=== PATIENT | female | born 1995 | race Caucasian/White ===

== ENCOUNTER → 2019-09-07 15:19 | Outpatient (CLI) | payer OTHER, SELFPAY ==
[2019-09-07 16:44] LABS: HCG,Quantitative 9808 mIU/mL
== END ==
PROVIDERS: Visit Provider Obstetrics & Gynecology
DX: Z34.90 Encounter for supervision of normal pregnancy, unspecified, unspecified trimester (principal)
CPT/HCPCS: 36415; 84702

== ENCOUNTER → 2019-09-29 13:04 | Outpatient (CLI) | payer OTHER, SELFPAY ==
[2019-09-29 14:13] LABS: Amphetamine/Metha Screen,Urine Positive ng/mL (<1000); Barbiturates Screen,Urine Negative ng/mL (<200); Benzodiazepines Screen,Urine Negative ng/mL (<200); Cannabinoid Screen,Urine Negative ng/mL (<50); Cocaine Screen,Urine Negative ng/mL (<300); Methadone Screen,Urine Negative ng/mL (<300); Opiate Screen,Urine Negative ng/mL (<300); Phencyclidine Screen,Urine Negative ng/mL (<25)
[2019-09-30 18:27] LABS: Buprenorphine, Urine Negative ng/mL (Cutoff=10)
== END ==
LOC: LAB 13:05 → LAB.DROPOF 13:12 → LAB 14:05
PROVIDERS: Visit Provider Nurse Practitioner Obstetrics & Gynecology
DX: Z34.90 Encounter for supervision of normal pregnancy, unspecified, unspecified trimester (principal); R82.5 Elevated urine levels of drugs, medicaments and biological substances
CPT/HCPCS: 80305; 80307

== ENCOUNTER → 2019-10-03 13:36 | Outpatient (CLI) | payer OTHER, SELFPAY ==
--- NOTE | 2019-10-03 13:37 | US_ITS ---
PROCEDURE: US OB TRANSVAGINAL CLINICAL INDICATION: US OB Dates Evaluate early Ob COMPARISON: No exams were available for comparison FINDINGS: An intrauterine gestational sac is present with a pole with a crown-rump length of 2.56 cm correlating to gestational age of 9 weeks 3 days. heart tones are present with an FHR of 167 bpm. Yolk sac is noted. Chorion and amnion fused. There is a 1.5 cm left corpus luteum cyst. Right ovary is unremarkable. No cul-de-sac fluid. IMPRESSION: Live IUP at 9 weeks 3 days Estimated due date by Ultrasound is 05/04/2020 Dictated by: Chad Esquivel MD 10/03/2019 18:01 Electronically signed by Chad Esquivel MD in [place] 10/03/2019 18:01
[2019-10-03 15:01] LABS: Basophils # 0.1 K/mm3 (0-0.2); Basophils % 0.6 % (0.1-2.0); Eosinophils # 0.1 K/mm3 (0.0-0.4); Eosinophils % 1.2 % (0.1-12.0); Hematocrit 37.2 % (37.0-47.0); Hemoglobin 12.2 g/dL (12.2-16.2); Lymphocytes # 1.9 K/mm3 (0.7-4.5); Lymphocytes % 22.8 % (10-50); Mean Corpuscular HGB Conc 32.8 g/dL (31.8-35.4); Mean Corpuscular Hemoglobin 30.5 pg (27.0-31.2); Monocytes # 0.3 K/mm3 (0.1-1.0); Neutrophils # 5.9 K/mm3 (1.8-7.8); Neutrophils % 71.4 % (37.0-80.0); Platelet Count 273 K/mm3 (142-424); Red Blood Count 3.99 M/mm3 (4.20-5.40); Red Cell Distribution Width 11.8 % (11.5-17.5); White Blood Count 8.3 K/mm3 (4.8-10.8)
[2019-10-05 13:17] LABS: HIV Screen 4th Generation wRfx Non Reactive (Non Reactive); Hepatitis B Surface Antigen Negative (Negative); Hepatitis C Antibody <0.1 s/co ratio (0.0-0.9); Rapid Plasma Reagin Ab Titer Non Reactive (NonRea<1:1); Rubella Antibodies, IgG 4.11 index (Immune >0.99)
== END ==
PROVIDERS: PCP Nurse Practitioner Family; Visit Provider Nurse Practitioner Obstetrics & Gynecology
DX: O26.841 Uterine size-date discrepancy, first trimester (principal)
CPT/HCPCS: 36415; 76817; 85025; 86592; 86703; 86762; 86850; 87340; 87380; G0432

== ENCOUNTER → 2019-10-03 14:05 | Outpatient (CLI) | payer OTHER, SELFPAY | PROVIDERS: Visit Provider Nurse Practitioner Obstetrics & Gynecology | DX: Z34.90 Encounter for supervision of normal pregnancy, unspecified, unspecified trimester (principal) | CPT/HCPCS: 36415; 85025; 86592; 86703; 86762; 86850; 87340; 87380; G0432 ==

== ENCOUNTER → 2019-12-11 14:31 | Outpatient (CLI) | payer OTHER, SELFPAY ==
--- NOTE | 2019-12-11 14:37 | US_ITS ---
PROCEDURE: US OB /MATERNAL DETAIL CLINICAL INDICATION: 20 wk. routine scan COMPARISON: US OB TRANSVAGINAL from 10/03/2019 FINDINGS: Single viable intrauterine gestation. Cephalic position. Placenta: Posteriorplacenta grade 1. There is average amount fluid. The cervix appears satisfactory. Closed and measuring 3.2 centimeters in length. Complete survey performed and was unremarkable on the submitted images as in PACS. No discrete anomalies identified on survey imaging by technologist. Active fetus. Three-vessel cord with satisfactory umbilical cord insertion. 4- chamber heart noted. Survey of brain & ventricles unremarkable Face and neck survey unremarkable. Diaphragm and chest views unremarkable. Abdomen: Both kidneys noted and unremarkable. Stomach noted and satisfactory. Spine: Survey of the spine satisfactory with no anomalies identified nor imaged. Both arms and legs noted. Amniotic Fluid: Adequate. Maternal adnexa: No significant findings. Measurements: Average ultrasound age 19weeks 3days. Gestational Age 19weeks 3days Estimated due date by ultrasound age 0705/03/2020. Estimated weight 293g BPD = 19weeks 3days OFD = 20 weeks 0 days HC = 19weeks AC = 19weeks 5days FL = 19weeks 3days Growth Percentile= 51Percent% Heart Rate = 143bpm Cerebellum = 19weeks 4days Humerus = 19weeks HC/AC is 1.13 CI is 0.76 FL/BPD is 0.68 FL/AC is 0.21 IMPRESSION: Living intrauterine gestation at 19 weeks 3 days with no anomalies evident. Dictated by: Saurav Dumont 12/11/2019 17:20 Electronically signed by Saurav Dumont in [place] 12/11/2019 17:20
== END ==
PROVIDERS: PCP Family Medicine; Visit Provider Nurse Practitioner Obstetrics & Gynecology
DX: Z34.90 Encounter for supervision of normal pregnancy, unspecified, unspecified trimester (principal)
CPT/HCPCS: 76811

== ENCOUNTER → 2020-02-02 08:40 | Outpatient (CLI) | payer OTHER, SELFPAY ==
[2020-02-02 09:17] LABS: Glucose,Fasting 86 mg/dl (74-100)
[2020-02-02 10:41] LABS: Glucose 1 Hour 106 mg/dL (74-100)
== END ==
PROVIDERS: Nurse Practitioner Obstetrics & Gynecology; Visit Provider Obstetrics & Gynecology
DX: Z34.90 Encounter for supervision of normal pregnancy, unspecified, unspecified trimester (principal)
CPT/HCPCS: 36415; 82951

== ENCOUNTER 2020-03-28 03:50 | Inpatient (IN) | payer OTHER, SELFPAY ==
--- NOTE | 2020-03-28 04:27 | HMH.DN ---
- Delivery Note Delivery Date:: 03/28/20 Delivery Time:: 04:14 Anesthesia Type: None Was labor medically induced?: No Induction method: none Gestational age (weeks): 34 delivered prior to 39 weeks?: Yes Justification for early elective delivery:: Active Labor Infant Gender: Male at 1 minute: 7 at 5 minutes: 8 AF:: Thin meconium Delivery Procedure:: She is a 24-year-old 2 para 1 who was 34 and 4 weeks gestational age. She came in active labor. She was found to be 8 cm dilated when she arrived. She then spontaneously ruptured her membranes and there was thin meconium. She had 1 long push and delivered a liveborn male child at 4:14 AM on the morning of March 28, 2020. On deliver the head it was noted that there was thin meconium. After the head delivered the rest the 's body delivered rapidly. The oropharynx and nasopharynx were bulb suction. The cord was doubly clamped and cut and the infant was handed off to Dr. Hendricks who assigned Apgars of 7 at 1 minute and 8 at 5 minutes. We then obtained cord blood as well as cord pH. She received IV oxytocin and using gentle traction on the cord and countertraction on the fundus I was able to easily deliver the placenta intact. He had a normal three-vessel cord. There were no perineal or vaginal lacerations. Her group B streptococcus status is unknown. Her caregivers non medical is Dr. Oliver. Estimated blood loss was approximately 300 cc. Placental Delivery Description: Spontaneous
[2020-03-28 04:31] LABS: Basophils # 0.1 K/mm3 (0-0.2); Basophils % 1.1 % (0.1-2.0); Eosinophils # 0.1 K/mm3 (0.0-0.4); Eosinophils % 1.2 % (0.1-12.0); Hematocrit 41.7 % (37.0-47.0); Hemoglobin 13.6 g/dL (12.2-16.2); Lymphocytes # 2.6 K/mm3 (0.7-4.5); Lymphocytes % 21.7 % (10-50); Mean Corpuscular HGB Conc 32.5 g/dL (31.8-35.4); Mean Corpuscular Hemoglobin 31.6 pg (27.0-31.2); Mean Corpuscular Volume 97.2 fl (81-99); Mean Platelet Volume 9.8 fl (7.4-10.4); Monocytes # 0.7 K/mm3 (0.1-1.0); Monocytes % 6.1 % (1.7-9.3); Neutrophils # 8.3 K/mm3 (1.8-7.8); Neutrophils % 69.9 % (37.0-80.0); Platelet Count 280 K/mm3 (142-424); Red Blood Count 4.29 M/mm3 (4.20-5.40); Red Cell Distribution Width 15.5 % (11.5-17.5); White Blood Count 11.9 K/mm3 (4.8-10.8)
[2020-03-28 04:34] LABS: Cord Blood PH 7.37 (7.35-7.45)
--- NOTE | 2020-03-28 04:36 | HMH.OBAPHP ---
OB - H&P: HPI Antepartum - History of Present Illness Chief complaint: Active labor contractions History of present illness: She is a 24-year-old 2 para 1 at 34 and 4 weeks gestational age. She began having contractions on the evening of March 27, 2020. She subsequently arrived in labor and delivery in the mobile service rv technician hours of March 28, 2020 and was found to be 8 cm dilated. She spontaneously ruptured her membranes and progressed rapidly to full diet ablation. She delivered a liveborn male child at 4:14 AM on the morning of March 28, 2020. The baby had Apgars of 7 at 1 minute and 8 at 5 minutes. She has a history of methamphetamine use. She has only had one episode of methamphetamine positive urine in the whole . She is otherwise been doing very well. - History of Present Criteria for establishing EDC:: LMP confirmed by 1st trimester US care: good care Ultrasounds: normal 1st trimester US, normal mid trimester US Obstetrical complications: none - Labs Blood type: O (+) positive Rubella: immune RPR/VDRL: nonreactive GBS status: unknown HBsAG: negative [facility] History I have reviewed the patient's past medical history: Yes *Have you ever received a pneumonia vaccine?: No Other Surgeries: Yes: No Previous Surgery Amputation: No Fractures: No - *Social History Smoking Status: Former smoker Alcohol Intake: never Substance Use Type: methamphetamine, amphetamines *Occupational Status:: other Family Hx:: No significant family history Review of Systems - Review of Systems Review of systems:: pertinent systems reviewed and negative unless documented below Meds Home Medications Medication Instructions Recorded Confirmed Type PNV 153-FA 400 mcg-om3 35 mg-dha 1 tab PO DAILY #30 tab 11/28/19 03/27/20 Rx 25 mg-epa 5 mg-fish oil chew tablet ondansetron 4 mg disintegrating 4 mg PO Q6H PRN #30 tab 11/28/19 03/27/20 Rx tablet ferrous sulfate 325 mg (65 mg 325 mg PO DAILY #30 tab 12/18/19 03/27/20 Rx iron) tablet famotidine 20 mg tablet 20 mg PO DAILY #30 tab 02/26/20 03/27/20 Rx flu vac qs 2018(4 yr up)CD(PF) IM 02/26/20 03/27/20 History acetaminophen 300 mg-codeine 30 mg tab PO 03/27/20 03/27/20 History tablet amoxicillin 500 mg capsule PO 03/27/20 03/27/20 History Allergies Allergy/AdvReac Type Severity Reaction Status Date / Time No Known Allergies Allergy Verified 03/27/20 11:08 OB - H&P: Exam - Constitutional no acute distress - Routine HEENT Exam Head: Present: normocephalic Eye: Present: EOMI, PERRL ENT: Present: mucous membranes moist - Routine Neck Exam Present: supple, full ROM - Routine Respiratory Exam Absent: accessory muscle use (good air entry bilaterally), respiratory distress, wheezes, crackles - Routine Cardiovascular Exam Present: RRR. Absent: murmur - Routine Abdominal Exam Present: soft, normoactive bowel sounds. Absent: tenderness, distended, guarding - Routine Rectal Exam Patient deferred: visual exam, digital exam - Routine Exam Patient deferred: external exam, groin exam, perineal exam - Routine Extremities Exam Present: full ROM. Absent: cyanosis, edema - Routine Skin Exam Present: intact. Absent: cyanosis - Routine Neurological Exam Present: alert, oriented X3 - Routine Psychiatric Exam Present: normal affect OB - A/P Antepartum (1) delivery Current visit: Yes Status: Acute - Additional Plan Planning to breastfeed?: No Plan: expectant management Additional Information:: She arrived and rapidly delivered a liveborn male child.
[2020-03-28 04:57] LABS: Coronavirus 19 IgG Antibody Negative (Negative); Coronavirus 19 IgM Antibody Negative (Negative)
[2020-03-28 07:40] VITALS: BMI 33.7
[2020-03-28 07:45] VITALS: BP 120/62; PULSE 70; RESP 17; TEMP 36.6; O2SAT 98; BMI 34.0
[2020-03-28 07:48] LABS: Microscopic, Urine URINE MICROSCOPIC (MICROSCOPIC)
[2020-03-28 07:49] LABS: Blood, Urine 1+ (Negative); Glucose,Urine (UA) Negative (Negative); Ketones,Urine 1+ (Negative); Leukocyte Esterase,Urine Negative (Negative); Nitrate,Urine Negative (Negative); PH,Urine 6.5 (5.0-8.5); Protein,Urine Negative (Negative)
[2020-03-28 07:51] LABS: Appearance,Urine Slightly Cloudy (Clear); Bilirubin,Urine 2+ (Negative); Color,Urine Orange (Yellow)
[2020-03-28 08:00] LABS: Amphetamine/Metha Screen,Urine Negative ng/ml (<1000)
[2020-03-28 08:01] LABS: Barbiturates Screen,Urine Negative ng/ml (<200); Benzodiazepines Screen,Urine Negative ng/ml (<200)
[2020-03-28 08:02] LABS: Cannabinoid Screen,Urine Negative ng/ml (<50)
[2020-03-28 08:03] LABS: Cocaine Screen,Urine Negative ng/ml (<300); Methadone Screen,Urine Negative ng/ml (<300)
[2020-03-28 08:04] LABS: Opiate Screen,Urine Positive ng/ml (<300)
[2020-03-28 08:05] LABS: Phencyclidine Screen,Urine Negative ng/ml (<25)
[2020-03-28 08:11] LABS: Bacteria,Urine Trace /lpf; Hyaline Casts,Urine Occasional #/lpf (0); Transitional Epi Cells,Urine OCC #/lpf (0-3)
--- NOTE | 2020-03-28 09:04 | HMH.PHAINT ---
MEDICATION RECONCILIATION COMPLETED ON PATIENT USING EXTERNAL FILL HISTORY FROM PHARMACY. -DEANGELO BULLARD, DONAD
--- NOTE | 2020-03-28 10:34 | SW/DCPLANNER ---
Addendum entered by Ember Sorto 04/15/20 09:30: I have faxed patient cord screen to Iris Hebert with [employer]PS at [phone]. Addendum entered by Ember Sorto 03/29/20 16:29: This case did meet criteria and [facility] [employer] did investigate. Care plan was completed and infant can discharge home with mom. I will follow up with [facility] Intake once infant cord screen is resulted. Addendum entered by Ember Sorto 03/29/20 10:38: I have contacted [facility] Intake back regarding infant POSITIVE urine drug screen 03/28/2020 (+) opiates. The ID# is [id number]. Addendum entered by Ember Sorto 03/28/20 15:29: This case did NOT meet criteria by Central Intake. I was informed by [facility] Intake that since is not scoring and there is no urine drug screen this case was NOT accepted. I will continue to follow up with nursing staff regarding scoring on this infant. I will also continue to follow up with infants cord screen. Original Note: I have received referral for this patient regarding: hx of methamphetamine abuse, multiple positive drug screens throughout , patient states she relapsed in February. Patient did test positive on: 09/29/19 for Amephetmines (admitted to using Meth), 02/26/2020 for Amephetamines and Methamphetamines (admitted to slipping and using Meth), 03/27/2020 for Buprenorphine (had a tooth pulled on 03/25/2020 and was prescribed Tylenol 3 w/ codeine), and at admission 03/28/2020 for opiates (Tylenol 3 w/ Codeine). There has not been a urine collected on at this time but cord screen has been sent out. male (Summer Chu) was born today 03/28/2018. Infants father (Carolina Chu 03/29/85) had just stepped out at time of my visit and patient stated that it was fine to proceed without him. Patient, Summer Figueroa Harly's cousin (Gamal Medina) and his six year old daughter will reside at [address] [place] [address] at time of discharge. Gamal Bain father (Richy Medina) stays at this address frequently as well. Patient did state that she has one other child (Zainab Chavez 11/18/16) whom resides in [place] with a couple is currently in the process of adopting Skylka[employer]. Patient stated that her father (Polo Jones) has rights to [employer] as well. Patient stated that she is currently enrolled with [facility] services. Patient stated she has: carseat, clothing, crib, diapers and will be breast feeding. Patient stated that she has never been to Rehabilitation or Clinics in the past. Patient stated that she has been [facility] ([place], [place]) with diagnosis of Bi-Polar and Schizophrenia. Patient plans to make an appointment with Jermaine Hallmanta in the future. This case has been reported to Central Intake ID#[id number]. Patient could be ready for discharge tomorrow.
--- NOTE | 2020-03-28 11:08 | HMH.OBAPHP ---
OB - H&P: HPI Antepartum - History of Present Illness Chief complaint: Contractions Comments: She is a 24-year-old 2 para 1 at 34 and 4 weeks gestational age. She began having contractions on the evening of March 27, 2020. She arrived in the dietitian teacher hours of March 28 in active labor. She was found to be 8 cm dilated. She has a history of methamphetamine use prior to and has had one episode of methamphetamine use during this . Otherwise she has done well throughout the . - History of Present Criteria for establishing EDC:: LMP confirmed by 1st trimester US care: good care Ultrasounds: normal 1st trimester US, normal mid trimester US Obstetrical complications: none Medical complications: none - Labs Blood type: O (+) positive Rubella: immune RPR/VDRL: nonreactive GBS status: unknown HBsAG: negative [facility] History I have reviewed the patient's past medical history: Yes *Have you ever received a pneumonia vaccine?: No *Have you received a flu vaccine this season?: No Other Surgeries: Yes: No Previous Surgery. No: Amputation: No Fractures: No - *Social History Smoking Status: Former smoker Alcohol Intake: never Substance Use Type: methamphetamine, amphetamines *Occupational Status:: unemployed *Travel in the last 8 weeks: None Family Hx:: No significant family history Para: 1 Review of Systems - Review of Systems Review of systems:: pertinent systems reviewed and negative unless documented below Meds Home Medications Medication Instructions Recorded Confirmed Type acetaminophen 300 mg-codeine 30 mg 1 tab PO Q6H PRN 03/27/20 03/28/20 History tablet amoxicillin 500 mg capsule 500 mg PO TID 03/27/20 03/28/20 History Famotidine [Acid Hr Clerk] 20 mg PO DAILY 03/28/20 03/28/20 History Ferrous Sulfate 325 mg PO HS 03/28/20 03/28/20 History Pnv No.153/FA/Om3/Dha/Epa/Fish 1 tab PO DAILY 03/28/20 03/28/20 History [ Gummies] Allergies Allergy/AdvReac Type Severity Reaction Status Date / Time No Known Allergies Allergy Verified 03/27/20 11:08 OB - H&P: Exam - Physical Exam Vital signs: Temp Pulse Resp BP Pulse Ox 97.9 F 70 17 120/62 98 03/28/20 07:45 03/28/20 07:45 03/28/20 07:45 03/28/20 07:45 03/28/20 07:45 - Constitutional no acute distress - Routine HEENT Exam Head: Present: normocephalic Eye: Present: EOMI, PERRL ENT: Present: mucous membranes moist - Routine Neck Exam Present: supple, full ROM - Routine Respiratory Exam Absent: accessory muscle use (good air entry bilaterally), respiratory distress, wheezes, crackles - Routine Cardiovascular Exam Present: RRR. Absent: murmur - Routine Abdominal Exam Present: soft, normoactive bowel sounds. Absent: tenderness, distended, guarding - Routine Rectal Exam Patient deferred: visual exam, digital exam - Routine Exam Patient deferred: external exam, groin exam, perineal exam - Routine Extremities Exam Present: full ROM. Absent: cyanosis, edema - Routine Skin Exam Present: intact. Absent: cyanosis - Routine Neurological Exam Present: alert, oriented X3 - Routine Psychiatric Exam Present: normal affect OB - Results - Labs Labs: Short CBC 03/28/20 Range/Units 04:05 WBC 11.9 H (4.8-10.8) K/mm3 Hgb 13.6 (12.2-16.2) g/dL Hct 41.7 (37.0-47.0) % Plt Count 280 (142-424) K/mm3 Urine 03/28/20 Range/Units 03:40 Urine Color [place] (Yellow) Urine Appearance Slightly cloudy (Clear) Urine pH 6.5 (5.0-8.5) Ur Specific [place] 1.020 (1.005-1.030) Urine Protein Negative (Negative) Urine Glucose (UA) Negative (Negative) OB - A/P Antepartum (1) delivery Current visit: Yes Status: Acute - Additional Plan Planning to breastfeed?: No Plan: expectant management Additional Information:: She arrived in active labor and was initially found to be
[2020-03-28 20:00] VITALS: BP 116/59; PULSE 50; RESP 17; TEMP 36.6; O2SAT 98
[2020-03-29 04:35] VITALS: BP 109/55; PULSE 72; RESP 20; TEMP 36.7; O2SAT 96
[2020-03-29 05:28] LABS: Hemoglobin 12.4 g/dL (12.2-16.2)
--- NOTE | 2020-03-29 10:56 | HMH.ACPN2 ---
Internal Medicine - PN: Subj *Date: 03/29/20 *Time: 10:56 Interval history: She continues to do well this morning. She is eating and drinking and ambulating. Her lochia is normal. Her pain is well controlled. We will plan to send her home tomorrow. Exam Vital signs and Labs for Last 24 Hours: Temp Pulse Resp BP Pulse Ox 98.0 F 72 20 109/55 L 96 03/29/20 04:35 03/29/20 04:35 03/29/20 04:35 03/29/20 04:35 03/29/20 04:35 Laboratory Results - last 24 hr 03/29/20 05:17: Hgb 12.4, Hct 37.0 I & O for Last 24 hours: Intake & Output 03/26/20 03/27/20 03/28/20 03/29/20 11:59 11:59 11:59 11:59 Weight 172 lb 15.948 oz - Constitutional no acute distress - *Routine HEENT Exam Head: Present: normocephalic Eye: Present: EOMI, PERRL ENT: Present: mucous membranes moist Assessment and Plan (1) delivery Current visit: Yes Status: Acute Category: Medical Code(s): O60.10X0 - labor with delivery, unspecified trimester, not applicable or unspecified - Assessment and plan all Dx Assessment and Plan for all problems:: She is doing well. Her lochia is normal. Her pain is well controlled. We will plan to send her home tomorrow.
[2020-03-30 04:00] VITALS: BP 106/56; PULSE 60; RESP 18; TEMP 36.6; O2SAT 99
[2020-03-30 08:30] VITALS: BP 114/56; PULSE 60; RESP 18; TEMP 36.6; O2SAT 99
--- NOTE | 2020-03-30 10:13 | HMH.DCSUM ---
General - General Admission date:: 03/28/20 Discharge date: 03/30/20 HPI HPI: She is a 24-year-old 3 now para 2 who is 34 and 4 weeks gestational age. She came in in active labor at 8 cm dilated. Hospital Course Hospital Course: She arrived in active labor and was found to be 8 cm dilated. She subsequently spontaneously ruptured her membranes. She progressed rapidly to full dilation and delivered spontaneously a liveborn male child at 4:14 AM on the morning of March 28, 2020. The baby weighed 5 pounds 12 ounces and was 17 inches long. He had Apgars of 7 at 1 minute and 8 at 5 minutes. She has done well and has remained afebrile throughout her hospitalization. She is eating and drinking and ambulating. She is bottlefeeding. She has O+ blood, she is rubella immune and was group B streptococcus unknown. Her court advocate Dr. Oliver. She is discharged home to follow-up with me in approximately 2 weeks time. She will continue with her vitamins and iron. She will continue with ibuprofen as well as Motrin. She was given Depo-Provera prior to discharge. Her condition on discharge is stable and improved. Rhogam Administration: Not Indicated Objective Vital signs: Temp Pulse Resp BP Pulse Ox 97.9 F 60 18 114/56 L 99 03/30/20 08:30 03/30/20 08:30 03/30/20 08:30 03/30/20 08:30 03/30/20 08:30 no acute distress - *Routine HEENT Exam Head: Present: normocephalic Eye: Present: EOMI, PERRL ENT: Present: mucous membranes moist DS: Diagnosis - Discharge Diagnosis (1) delivery Status: Acute Discharge Plan - Patient Discharge Instructions ACTIVITY: No heavy lifting DIET: continue same diet Additional Instructions: Nothing in the vagina for 6 weeks, and no heavy lifting Patient Instructions: Pre-eclampsia, Depression, Hemorrhage, DI for Labor and Delivery, Vaginal , Taking Your Preemie Home, [facility] Post Discharge Instructions, Preventing the Spread of Coronavirus Discharge Instructions - Follow up Plan Follow up with: Adarsh Arvizu MD [Staff Physician] - 04/09/20 3:45 pm Disposition: Home, Self-Snf Medications: Home Medications Medication Instructions Recorded Confirmed Type acetaminophen 300 mg-codeine 30 mg 1 tab PO Q6H PRN 03/27/20 03/28/20 History tablet amoxicillin 500 mg capsule 500 mg PO TID 03/27/20 03/28/20 History Pnv No.153/FA/Om3/Dha/Epa/Fish 1 tab PO DAILY 03/28/20 03/28/20 History [ Gummies] RX: Famotidine [Acid Qualitative Researcher] 20 mg PO DAILY 03/28/20 03/28/20 History RX: Ferrous Sulfate 325 mg PO HS 03/28/20 03/28/20 History Prescriptions/Medication Reconciliation: Continued acetaminophen 300 mg-codeine 30 mg tablet 1 tab PO Q6H PRN PRN Reason: Headache amoxicillin 500 mg capsule 500 mg PO TID RX: Ferrous Sulfate 325 mg PO HS RX: Famotidine [Acid Qualitative Researcher] 20 mg PO DAILY Pnv No.153/FA/Om3/Dha/Epa/Fish [ Gummies] 1 tab PO DAILY - Problem Reconciliation Problems Reviewed?: Yes
== END 2020-03-30 12:35 | disposition home or self-care (01) | DRG 807 ==
LOC: OBOUT 03:54 → OB 03:54
PROVIDERS: Admitting Provider Nurse Practitioner Obstetrics & Gynecology; PCP Family Medicine; Visit Provider Nurse Practitioner Obstetrics & Gynecology
DX: O60.14X0 Preterm labor third trimester with preterm delivery third trimester, not applicable or unspecified (principal); Z37.0 Single live birth; Z3A.34 34 weeks gestation of pregnancy
CPT/HCPCS: 59409; 59025; 80305; 81001; 82800; 85014; 85018; 85025; 86328; 86850; J1050

== ENCOUNTER 2021-04-04 10:50 | Emergency (ER) | payer OTHER, SELFPAY ==
[2021-04-04 11:01] VITALS: BP 114/55; PULSE 64; RESP 17; TEMP 36.8; O2SAT 98; BMI 39.8
--- NOTE | 2021-04-04 11:26 | HMH.EDUTC ---
[facility] [place] Disposition Clinical Impression: Bronchitis Sinusitis Qualifiers: Sinusitis location: maxillary Chronicity: acute Recurrence: non-recurrent Qualified Code(s): J01.00 - Acute maxillary sinusitis, unspecified Disposition: Home, Self-Care Condition on Discharge: Good Instructions: DI for Sinusitis Prescriptions: Amoxicillin/Potassium Clav [Augmentin 535125 Tablet] 1 tab PO Q12H 10 Days #20 tab Transmission Status: Pending to [facility] predniSONE [Prednisone 20mg Tab] 20 mg PO BID 5 Days #10 tab Transmission Status: Pending to [facility] Albuterol Sulfate [Proair Hfa] 2 puffs IH Q4HP PRN 30 Days #1 hfa.aer.ad PRN Reason: Wheezing Transmission Status: Pending to [facility] Referrals: Elian Oliver MD [Primary Care Provider] - Time of Disposition: 11:30 Medical Decision Making - David Inquiry Pt receiving controlled substance: No Vital Signs: 04/04/21 11:01 Temperature 98.2 F Temperature Source Oral Pulse Rate [Left] 64 Respiratory Rate 17 Blood Pressure [Right Arm] 114/55 L Blood Pressure Mean [Right Arm] 74 02 Sat by Pulse Oximetry 98 [facility] [place] HPI - General Stated complaint: cough, sneezing, congestion Time Seen by Provider: 04/04/21 11:26 Mode of Arrival: Ambulatory Source of Information: Patient Limitations: No Limitations Description of Symptoms (Recalled from Triage Doc. by RN): Pt states that she has allergies and sinuses and has been coughing, sneezing, runny nose and a sinus headache HEENT Symptoms (Recalled from RN notes): No Resp Symptoms (Recalled from RN notes): Yes Skin Symptoms (Recalled from RN notes): No MS Symptoms (Recalled from RN notes): No Functional Status (Recalled from RN notes): wnl - History of Present Illness Provider Complaint: Coughing, sneezing, congestion, wheezing X 1 week. No fever. Bilateral ear pain. Sore throat. Cannot taste anything but thinks that is because she is congested. Has green mucous. Is wheezing. No vomiting. Has diarrhea. No rash. No known exposure to COVID19. Onset (ago): week(s) (1) Location: chest Relieving factors: none Exacerbating factors: none Associated symptoms: denies other symptoms Treatments prior to arrival: other (Mucinex DM, Benadryl) - Related Data Home Medications Medication Instructions Recorded Confirmed Famotidine [Acid Marketing Database Consultant] 20 mg PO DAILY 03/28/20 07/02/20 levonorgestrel 20 mcg/24 hours (6 INTRAUTERI 07/02/20 07/02/20 yrs) 52 mg intrauterine device Previous Rx's Medication Instructions Recorded Albuterol Sulfate [Proair Hfa] 2 puffs IH Q4HP PRN 30 Days #1 04/04/21 hfa.[email or web address] Amoxicillin/Potassium Clav 1 tab PO Q12H 10 Days #20 tab 04/04/21 [Augmentin 875-125 Tablet] predniSONE [Prednisone 20mg 20 mg PO BID 5 Days #10 tab 04/04/21 Tab] Allergies Allergy/AdvReac Type Severity Reaction Status Date / Time No Known Allergies Allergy Verified 04/04/21 11:26 - Worker's Comp Is this a Worker's Comp case?: No [facility] History - Hepatitis A Screen Drug use history?: No High risk sexual behaviors?: No History of sexually transmitted infection?: No Currently employed?: No Childcare worker?: No Do you have indoor plumbing?: Yes Do you have electricity?: Yes Attestation statement:: This patient has been screened for Hepatitis A risk factors. I have reviewed the patient's past medical history: Yes Other Surgeries: Yes: No Previous Surgery. No: Amputation: No Fractures: No - Social History Smoking Status: Former smoker Alcohol Intake: never Alcohol Intake Frequency:: other Substance Use Type: methamphetamine, amphetamines Occupational Status: unemployed Family Hx:: No significant family history ROS Obtained: Yes All systems reviewed & no additional complaints - Constitutional Constitutional: Denies fever(s), Reports malaise - ENT Ears, Nose, Mouth, and Throat: Reports otalgia, Reports sinus
[2021-04-04 11:27] VITALS: BP 114/55; PULSE 64; RESP 17; TEMP 36.7; O2SAT 98
== END 2021-04-04 11:40 | disposition home or self-care (01) ==
PROVIDERS: Emergency Provider Physician Assistant; PCP Family Medicine
DX: J20.9 Acute bronchitis, unspecified (principal); J01.00 Acute maxillary sinusitis, unspecified; Z87.891 Personal history of nicotine dependence
CPT/HCPCS: 99202; G0463

== ENCOUNTER 2021-07-17 16:46 | Emergency (ER) | payer OTHER, SELFPAY ==
[2021-07-17 16:53] VITALS: BP 129/71; PULSE 68; RESP 18; TEMP 37; O2SAT 99; BMI 41.0
[2021-07-17 16:59] VITALS: BP 129/71; PULSE 68; RESP 18; TEMP 37
--- NOTE | 2021-07-17 17:04 | HMH.EDUTC ---
[facility] [place] Clinical Impression: Otitis media Qualifiers: Otitis media type: unspecified Laterality: right Qualified Code(s): H66.91 - Otitis media, unspecified, right ear Disposition: Home, Self-Care Condition on Discharge: Good Instructions: Middle Ear Infection, Amoxicillin Additional Instructions: *Monitor Temp, Over the counter Motrin or Tylenol as directed/as needed Tylenol every 4 hours and Motrin every 6 hours (as long as your family doctor has told you that you can take it) for fever or pain. and straight to ER if unable to lower temp less than 101.0 after medication given Take medication as prescribed *Sleep elevated *Humidifier/Vaporizer *Follow up with your Family Doctor if no improvement or any worsening of symptoms Return if needed Follow up IMMEDIATELY for new or worsening symptoms or no Noticeable improvement over the next 48-72 hours. 911 for difficulty breathing or swallowing Prescriptions: Amoxicillin [Amoxicillin 500mg Cap] 500 mg PO TID #30 cap Transmission Status: Pending to [facility] Referrals: Elian Oliver MD [Primary Care Provider] - As needed Time of Disposition: 17:12 Medical Decision Making - David Inquiry Pt receiving controlled substance: No David was queried for this patient: No Vital Signs: 07/17/21 16:53 07/17/21 16:59 Temperature 98.6 F 98.6 F Temperature Source Oral Pulse Rate 68 Pulse Rate [Left] 68 Respiratory Rate 18 18 Blood Pressure 129/71 Blood Pressure [Right Arm] 129/71 Blood Pressure Mean [Right Arm] 90 02 Sat by Pulse Oximetry 99 Medical Decision Narrative: patient wanted to see if she could get her ear cleaned out she has been having pain and feels like it is infected and unable to hear well out of it Discussed with patient and due to erythema noted recommended completing course of antibiotics first then get ear cleaned after completion if infection has improved [facility] [place] HPI - General Stated complaint: R ear Time Seen by Provider: 07/17/21 17:04 Mode of Arrival: Ambulatory Source of Information: Patient Limitations: No Limitations Description of Symptoms (Recalled from Triage Doc. by RN): pt c/o R ear pain and loss of hearing HEENT Symptoms (Recalled from RN notes): Yes (R ear pain and hearing loss) Resp Symptoms (Recalled from RN notes): No Skin Symptoms (Recalled from RN notes): No MS Symptoms (Recalled from RN notes): No Functional Status (Recalled from RN notes): na - History of Present Illness Provider Complaint: Patient states that she has been having pain in her right ear and feels like it is stopped up and she cannot hear well out of it States that she was worried that she may have an ear infection - Related Data Home Medications Medication Instructions Recorded Confirmed aripiprazole 10 mg tablet 10 mg PO DAILY 04/30/21 06/05/21 prazosin 1 mg capsule 1 mg PO HS 04/30/21 06/05/21 sertraline 50 mg tablet 50 mg PO tab 06/05/21 06/05/21 Previous Rx's Medication Instructions Recorded Albuterol Sulfate [Proair Hfa] 2 puffs IH Q4HP PRN 30 Days #1 04/04/21 hfa.aer.ad etonogestrel 0.12 mg-ethinyl 1 vag ring VAGINAL Q4W #3 each 04/30/21 estradiol 0.015 mg/24 hr vaginal ring Amoxicillin [Amoxicillin 500mg 500 mg PO TID #30 cap 07/17/21 Cap] Allergies Allergy/AdvReac Type Severity Reaction Status Date / Time No Known Allergies Allergy Verified 06/05/21 10:44 - Worker's Comp Is this a Worker's Comp case?: No [facility] History - Hepatitis A Screen Drug use history?: No High risk sexual behaviors?: No History of sexually transmitted infection?: No Currently employed?: No Childcare worker?: No Do you have indoor plumbing?: Yes Do you have electricity?: Yes Attestation statement:: This patient has been screened for Hepatitis A risk factors. I have reviewed the patient's past medical history: Yes Other Surgeries: Yes: No Previous Surgery. No: Amputation: No Fra
== END 2021-07-17 17:24 | disposition home or self-care (01) ==
PROVIDERS: Emergency Provider Nurse Practitioner; PCP Family Medicine
DX: H66.91 Otitis media, unspecified, right ear (principal)
CPT/HCPCS: 99202; G0463

== ENCOUNTER → 2021-12-12 10:53 | Outpatient (CLI) | payer OTHER, SELFPAY ==
[2021-12-12 12:59] LABS: HCG,Quantitative < 2 mIU/ml (0-5.42)
== END ==
PROVIDERS: PCP Family Medicine; Visit Provider Nurse Practitioner Obstetrics & Gynecology
DX: Z34.90 Encounter for supervision of normal pregnancy, unspecified, unspecified trimester (principal)
CPT/HCPCS: 36415; 84702

== ENCOUNTER 2022-01-31 19:38 | Emergency (ER) | payer OTHER, SELFPAY ==
[2022-01-31 20:47] VITALS: BP 143/92; PULSE 98; RESP 16; TEMP 36.4; O2SAT 98; BMI 38.2
--- NOTE | 2022-01-31 20:48 | HMH.EDUTC ---
[facility] – [place] Clinical Impression: Otitis media Qualifiers: Otitis media type: suppurative Chronicity: acute Laterality: bilateral Recurrence: non-recurrent Spontaneous tympanic membrane rupture: without spontaneous rupture Qualified Code(s): H66.003 - Acute suppurative otitis media without spontaneous rupture of ear drum, bilateral Sinusitis Qualifiers: Sinusitis location: unspecified location Chronicity: acute Recurrence: non-recurrent Qualified Code(s): J01.90 - Acute sinusitis, unspecified Disposition: Home, Self-Care Condition on Discharge: Good Instructions: DI for Sinusitis Additional Instructions: Drink plenty of fluids. Take tylenol or ibuprofen for pain or fever. Take the medications as directed. Follow up with your regular doctor. GO TO THE ER FOR ANY WORSENING SYMPTOMS Prescriptions: Brompheniramine/Pseudoephed/Dm [Bromfed Dm Cough Syrup] 5 ml PO Q6HP PRN #240 ml PRN Reason: Cough Transmission Status: Received by [facility] Amoxicillin [Amoxicillin 500mg Tab] 500 mg PO TID 10 Days #30 tab Transmission Status: Received by [facility] methylPREDNISolone [Medrol] 4 mg PO DIRECTED 6 Days #21 packet Transmission Status: Received by [facility] Referrals: Provider,Referral, [Primary Care Provider] - Time of Disposition: 21:31 Medical Decision Making - Medical Records Medical records reviewed: No: I reviewed the patient's medical records. - David Inquiry Pt receiving controlled substance: No Vital Signs: 01/31/22 20:47 01/31/22 21:28 Temperature 97.5 F L 97.5 F L Temperature Source Oral Pulse Rate 98 H Pulse Rate [Left] 98 H Respiratory Rate 16 16 Blood Pressure 143/92 H Blood Pressure [Right Arm] 143/92 H Blood Pressure Mean [Right Arm] 109 02 Sat by Pulse Oximetry 98 - Lab Data Lab Results 01/31/22 21:11: [facility] Negative [facility] [place] HPI - General Stated complaint: loss of hearing in rt ear Time Seen by Provider: 01/31/22 20:48 - History of Present Illness Provider Complaint: She states that for the past 1 week she has had right ear pain and now she is having trouble hearing in the ear. She has also had a cough and sinus congetestion. - Related Data Previous Rx's Medication Instructions Recorded Albuterol Sulfate [Proair Hfa] 2 puffs IH Q4HP PRN 30 Days #1 04/04/21 hfa.aer.ad etonogestrel 0.12 mg-ethinyl 1 vag ring VAGINAL Q4W #3 each 04/30/21 estradiol 0.015 mg/24 hr vaginal ring atomoxetine 60 mg capsule 60 mg PO DAILY #30 cap 01/12/22 paroxetine HCl 30 mg tablet 30 mg PO DAILY #30 tab 01/12/22 Amoxicillin [Amoxicillin 500mg Tab] 500 mg PO TID 10 Days #30 tab 01/31/22 Brompheniramine/Pseudoephed/Dm 5 ml PO Q6HP PRN #240 ml 01/31/22 [Bromfed Dm Cough Syrup] methylPREDNISolone [Medrol] 4 mg PO DIRECTED 6 Days #21 01/31/22 packet Allergies Allergy/AdvReac Type Severity Reaction Status Date / Time No Known Allergies Allergy Verified 09/24/21 14:49 [facility] History - Hepatitis A Screen Attestation statement:: This patient has been screened for Hepatitis A risk factors. I have reviewed the patient's past medical history: Yes Other Surgeries: Yes: No Previous Surgery. No: Amputation: No Fractures: No - Social History Smoking Status: Former smoker Tobacco Type: cigarettes # Packs/Day (cigarettes): 1 Alcohol Intake: current Alcohol Intake Frequency:: holidays/special occasions only Substance Use Type: methamphetamine, amphetamines, marijuana (she will vape with pot) Occupational Status: other Family Hx:: No significant family history ROS Obtained: Yes All systems reviewed & no additional complaints - Constitutional Constitutional: Reports as per HPI - Eyes Eyes: Denies eye discharge - ENT Ears, Nose, Mouth, and Throat: Reports as per HPI - Cardiovascular Cardiovascular: Denies chest pain - Respiratory Respiratory: Reports
[2022-01-31 21:28] VITALS: BP 143/92; PULSE 98; RESP 16; TEMP 36.4
[2022-02-01 19:44] LABS: UTC Pregnancy Test, Urine Negative (Negative)
== END 2022-01-31 21:35 | disposition home or self-care (01) ==
PROVIDERS: Emergency Provider Nurse Practitioner Family
DX: H66.003 Acute suppurative otitis media without spontaneous rupture of ear drum, bilateral (principal); J01.90 Acute sinusitis, unspecified; H91.91 Unspecified hearing loss, right ear; Z79.51 Long term (current) use of inhaled steroids; Z79.52 Long term (current) use of systemic steroids; Z79.899 Other long term (current) drug therapy; Z87.891 Personal history of nicotine dependence
CPT/HCPCS: 81025; 99213; G0463

== ENCOUNTER 2022-02-26 23:17 | Emergency (ER) | payer OTHER, SELFPAY ==
[2022-02-26 23:19] VITALS: BP 132/97; PULSE 124; RESP 18; TEMP 36.8; O2SAT 96; BMI 38.2
--- NOTE | 2022-02-26 23:32 | HMH.EDMCLR ---
ED Disposition Clinical Impression: Medical clearance for incarceration Disposition: Home, Self-Care Condition on Discharge: Good Instructions: DI for Substance Use Disorder Additional Instructions: see pcp for follow up - Critical Care Critical Care Time: No Attestation: On , the high probability of a clinically significant, sudden or life threatening deterioration of the following system(s) required my full and direct attention, intervention and personal management. The time I documented below is in addition to time spent performing reported procedures but includes the following listed in this critical care notation. Medical Decision Making - Medical Records Medical records reviewed: Yes: I reviewed the patient's medical records. - David Inquiry Pt receiving controlled substance: No Vital Signs: 02/26/22 23:19 Temperature 98.3 F Temperature Source Oral Pulse Rate [Left Radial] 124 H Respiratory Rate 18 Blood Pressure [Right Arm] 132/97 H Blood Pressure Mean [Right Arm] 108 Blood Pressure Source [Right Arm] Automatic Cuff 02 Sat by Pulse Oximetry 96 Oxygen Delivery Method Room Air Medical Clearance HPI - General Chief complaint: Medical Clearance Stated complaint: Medical Clearance Time Seen by Provider: 02/26/22 23:20 Mode of Arrival: Ambulatory Source of Information: Patient, Medical Record Limitations: No Limitations Description of Symptoms (Recalled from ER Triage Doc. by RN): MEDICAL CLEARANCE FOR [place]ONATH[place] PD- - History of Present Illness HPI Narrative: no specific c/o MD complaint: medical clearance requested Traumatic Symptoms: denies traumatic injury Associated Symptoms: denies other symptoms Treatments Prior to Arrival: none Home medications: Previous Rx's Medication Instructions Recorded Albuterol Sulfate [Proair Hfa] 2 puffs IH Q4HP PRN 30 Days #1 04/04/21 hfa.aer.ad etonogestrel 0.12 mg-ethinyl 1 vag ring VAGINAL Q4W #3 each 04/30/21 estradiol 0.015 mg/24 hr vaginal ring Amoxicillin [Amoxicillin 500mg Tab] 500 mg PO TID 10 Days #30 tab 01/31/22 Brompheniramine/Pseudoephed/Dm 5 ml PO Q6HP PRN #240 ml 01/31/22 [Bromfed Dm Cough Syrup] methylPREDNISolone [Medrol] 4 mg PO DIRECTED 6 Days #21 01/31/22 packet atomoxetine 60 mg capsule 60 mg PO DAILY #30 cap 02/20/22 paroxetine HCl 30 mg tablet 30 mg PO DAILY #30 tab 02/20/22 Allergies/Adverse reactions: Allergies Allergy/AdvReac Type Severity Reaction Status Date / Time No Known Allergies Allergy Verified 09/24/21 14:49 [facility] History - Hepatitis A Screen Attestation statement:: This patient has been screened for Hepatitis A risk factors. I have reviewed the patient's past medical history: Yes Other Surgeries: Yes: No Previous Surgery. No: Amputation: No Fractures: No - Social History Smoking Status: Former smoker Tobacco Type: cigarettes # Packs/Day (cigarettes): 1 Alcohol Intake: current Alcohol Intake Frequency:: holidays/special occasions only Substance Use Type: methamphetamine, amphetamines, marijuana (she will vape with pot) Occupational Status: other Family Hx:: No significant family history ROS Obtained: Yes All systems reviewed & no additional complaints Physical Exam - General General appearance: alert - Head Head exam: normocephalic - Eye Eye exam: Present: PERRL, EOMI - ENT ENT exam: Present: mucous membranes moist - Neck Neck exam: Present: trachea midline - Respiratory Respiratory exam: Absent: respiratory distress - Cardiovascular Cardiovascular exam: Present: regular rate - Abdominal Exam Abdominal exam: Present: soft - Extremities Exam Extremities exam: Present: full ROM - Neurological Exam Neurological exam: Present: alert, CN II-XII intact - Psychiatric Psychiatric exam: Present: normal affect - Skin Skin exam: Absent: rash
[2022-02-26 23:37] VITALS: BP 132/97; PULSE 122; RESP 18; TEMP 36.8; O2SAT 96
== END 2022-02-26 23:40 | disposition home or self-care (01) ==
LOC: ER 23:40
PROVIDERS: Emergency Provider Emergency Medicine; PCP Nurse Practitioner Family
DX: Z00.8 Encounter for other general examination (principal)
CPT/HCPCS: 99283

== ENCOUNTER 2022-05-04 12:16 | Emergency (ER) | payer OTHER, SELFPAY ==
[2022-05-04 12:17] VITALS: BP 140/78; PULSE 86; RESP 16; TEMP 36.9; O2SAT 99; BMI 38.7
[2022-05-04 12:37] VITALS: BP 140/78; PULSE 86; RESP 16; TEMP 36.9; O2SAT 99; BMI 38.8
[2022-05-04 12:41] LABS: UTC Pregnancy Test, Urine Negative (Negative)
--- NOTE | 2022-05-04 12:48 | HMH.EDUTC ---
[facility] [place]: Viral syndrome Disposition: Home, Self-Care Condition on Discharge: Good Instructions: Nausea and Vomiting-Adult, Diarrhea Additional Instructions: Drink extra fluids with and between meals. If you have difficulty drinking, try very small amounts of water or suck on ice chips. ? Avoid fruit juices, as these do not replace minerals and can actually increase diarrhea. ? Children and adults can use sports drinks to replenish electrolytes. Younger children and infants should use products formulated for children, like oral rehydration solutions. ? Eat food in small amounts and let your stomach recover. ? Get lots of rest. You may feel tired or weak. ? No greasy or fried foods for the next 24-48 hours BRAT diet Bananas Rice Apples and [place] ? Make sure to drink plenty of liquids ? Return if needed ? Straight to ER if any life threatening symptoms ? Zofran as prescribed ? Follow up with family doctor in the next 48-72 hours if no improvement or any worsening of symptoms Prescriptions: Ondansetron [Zofran 4mg ODT] 4 mg PO TIDP PRN #10 tab PRN Reason: Nausea Transmission Status: Pending to [facility] Referrals: Sharita Carroll APRN [Primary Care Provider] - As needed Time of Disposition: 13:02 Medical Decision Making - David Inquiry Pt receiving controlled substance: No David was queried for this patient: No Vital Signs: 05/04/22 12:17 05/04/22 12:37 Temperature 98.4 F 98.4 F Temperature Source Oral Oral Pulse Rate [Right Radial] 86 86 Respiratory Rate 16 16 Blood Pressure [Right Arm] 140/78 140/78 Blood Pressure Mean [Right Arm] 98 98 Blood Pressure Source [Right Arm] Automatic Cuff Blood Pressure Position [Right Arm] Sitting 02 Sat by Pulse Oximetry 99 99 Oxygen Delivery Method Room Air - Lab Data Lab results reviewed: Yes: I reviewed the patient's lab results. Lab Results 05/04/22 12:41: [facility] Clinic Negative Medical Decision Narrative: Patient states that she has taken zofran in the past without problems or complications [facility] [place] - General Stated complaint: vomiting, chills, fever Time Seen by Provider: 05/04/22 12:48 Description of Symptoms (Recalled from Triage Doc. by RN): patient comes in for nausea, vomitting, diarrhea. patient is concerned for HEENT Symptoms (Recalled from RN notes): No Resp Symptoms (Recalled from RN notes): No Skin Symptoms (Recalled from RN notes): No MS Symptoms (Recalled from RN notes): No Functional Status (Recalled from RN notes): n/a - History of Present Illness Provider Complaint: Patient states that she woke up this morning not feeling well having N/V/D States that she is also late on her period and she is concerned that she may be and wanted a test States that today she was having sinus congestion and drianage too and has bad allergies and today she has been vomiting and not keeping much down - Related Data Previous Rx's Medication Instructions Recorded Albuterol Sulfate [Proair Hfa] 2 puffs IH Q4HP PRN 30 Days #1 04/04/21 hfa.aer.ad etonogestrel 0.12 mg-ethinyl 1 vag ring VAGINAL Q4W #3 each 04/30/21 estradiol 0.015 mg/24 hr vaginal ring buspirone 10 mg tablet 10 mg PO BID #60 tab 04/22/22 paroxetine HCl 30 mg tablet 30 mg PO DAILY #30 tab 04/22/22 viloxazine 200 mg capsule,extended 200 mg PO .COMPLEX #60 cap 04/22/22 release 24 hr Ondansetron [Zofran 4mg ODT] 4 mg PO TIDP PRN #10 tab 05/04/22 Allergies Allergy/AdvReac Type Severity Reaction Status Date / Time No Known Allergies Allergy Verified 04/22/22 09:29 - Worker's Comp Is this a Worker's Comp case?: No [facility] History - Hepatitis A Screen Attestation statement:: This patient has been screened for Hepatitis A risk factors. I have reviewed the patient's past medical history: Yes Other Surgeries: Yes: No Previous Surgery. No: Amputation: No Fractures:
[2022-05-04 13:05] VITALS: BP 140/78; PULSE 86; RESP 16; TEMP 36.9
== END 2022-05-04 13:14 | disposition home or self-care (01) ==
LOC: ER 12:26 → UTC 12:29
PROVIDERS: Emergency Provider Nurse Practitioner; PCP Nurse Practitioner Family
DX: B34.9 Viral infection, unspecified (principal); Z32.02 Encounter for pregnancy test, result negative
CPT/HCPCS: 81025; 99212; C9803; G0463; U0003; U0005

== ENCOUNTER 2022-05-05 09:43 | Emergency (ER) | payer OTHER, SELFPAY ==
[2022-05-05 10:02] VITALS: BP 134/90; PULSE 78; RESP 16; TEMP 36.7; O2SAT 95; BMI 38.7
--- NOTE | 2022-05-05 10:10 | HMH.EDUTC ---
[facility] – [place] Disposition Clinical Impression: Viral syndrome Sinusitis Qualifiers: Sinusitis location: unspecified location Chronicity: acute Recurrence: non-recurrent Qualified Code(s): J01.90 - Acute sinusitis, unspecified Disposition: Home, Self-Care Condition on Discharge: Good Instructions: DI for Sinusitis Additional Instructions: Drink plenty of fluids. Take tylenol or ibuprofen for pain or fever. Take the medications as directed. Follow up with your regular doctor. GO TO THE ER FOR ANY WORSENING SYMPTOMS Quarantine until you know the results of your covid-19 test. Notify your school or workplace of your results and follow their instructions regarding return to work/school. Prescriptions: Brompheniramine/Pseudoephed/Dm [Bromfed Dm Cough Syrup] 5 ml PO Q6HP PRN #240 ml PRN Reason: Cough Transmission Status: Received by [facility] methylPREDNISolone [Medrol] 4 mg PO DIRECTED 6 Days #21 packet Transmission Status: Received by [facility] Azithromycin [Z-Prabhu 250mg Tab*] 250 mg PO UD DOSE PK #6 tab Transmission Status: Received by [facility] Referrals: Sharita Carroll APRN [Primary Care Provider] - Time of Disposition: 10:43 Medical Decision Making - Medical Records Medical records reviewed: No: I reviewed the patient's medical records. - David Inquiry Pt receiving controlled substance: No Vital Signs: 05/05/22 10:02 05/05/22 10:54 Temperature 98.0 F 98.0 F Temperature Source Oral Pulse Rate 78 Pulse Rate [Left] 78 Respiratory Rate 16 16 Blood Pressure 134/90 Blood Pressure [Right Arm] 134/90 Blood Pressure Mean [Right Arm] 104 02 Sat by Pulse Oximetry 95 - Lab Data Lab Results 05/04/22 10:11: Chlamy pneumoniae PCR Not detected, Adenovirus (PCR) Not detected, B. pertussis DNA (PCR) Not detected, Coronavirus OC43 (PCR) Not detected, Coronavirus HKU1 (PCR) Not detected, Coronavirus 229E (PCR) Not detected, SARS-CoV-2 (PCR) Not detected, Coronavirus NL63 (PCR) Not detected, Human Metapneumovir PCR Not detected, Influenza A (H1) PCR Not detected, Influ A (H1N1/09) PCR Not detected, Influenza A (H3) PCR Not detected, Influenza Type A (PCR) Not detected, Influenza Type B (PCR) Not detected, M. pneumoniae (PCR) Not detected, Parainfluenza 1 (PCR) Not detected, Parainfluenza 2 (PCR) Not detected, Parainfluenza 3 (PCR) Not detected, Parainfluenza 4 (PCR) Not detected, RSV (PCR) Not detected, Entero/Rhino (PCR) Not detected Orders (Tests/Meds): ED MEDICATIONS Discontinued Medications Generic Name Dose Route Start Last Admin Trade Name Tony PRN Reason Stop Dose Admin Ketorolac Tromethamine 60 mg 05/05/22 10:41 05/05/22 10:44 Ketorolac 60mg/2ml Vial IM 05/05/22 10:42 60 mg ONCE ONE Administration [facility] [place] HPI - General Stated complaint: runny nose, sore throat, h/a Time Seen by Provider: 05/05/22 10:10 Description of Symptoms (Recalled from Triage Doc. by RN): patient comes in with complaints of sinus headache. patient was seen yesterday and had a negative covid test. HEENT Symptoms (Recalled from RN notes): Yes Resp Symptoms (Recalled from RN notes): Yes Skin Symptoms (Recalled from RN notes): No MS Symptoms (Recalled from RN notes): No Functional Status (Recalled from RN notes): n/a - History of Present Illness Provider Complaint: She states that she has sinus congestion, scratchy sore throat, chills, low grade fever and bilateral ear pain for the past 3 days. She has had a negative covid-19 test here at this hospital yesterday. - Related Data Home Medications Medication Instructions Recorded Confirmed Buspirone HCl [Buspar 10mg 10 mg PO BID 05/05/22 05/05/22 tablet] Viloxazine HCl [Qelbree] 200 mg PO .COMPLEX 05/05/22 05/05/22 Previous Rx's Medication Instructions Recorded Albuterol Sulfate [Proair Hfa] 2 puffs IH Q4HP PRN 30 Days #1 04/04/21 hfa.aer.ad etonogestrel 0.12
[2022-05-05 10:54] VITALS: BP 134/90; PULSE 78; RESP 16; TEMP 36.7
[2022-05-05 12:09] LABS: Adenovirus,PCR Not Detected (NotDetected); Bordetella Pertussis Not Detected (NotDetected); Chlamydophila Pneumoniae, PCR Not Detected (NotDetected); Coronavirus 19, PCR Not Detected (NotDetected); Coronavirus 229E Not Detected (NotDetected); Coronavirus NL63 Not Detected (NotDetected); Coronavirus OC43 Not Detected (NotDetected); Coronovirus HKU1,PCR Not Detected (NotDetected); Human Metapneumovirus Not Detected (NotDetected); Influenza A, PCR Not Detected (NotDetected); Influenza AH1, 2009 Not Detected (NotDetected); Influenza AH1, PCR Not Detected (NotDetected); Influenza AH3,PCR Not Detected (NotDetected); Influenza B, PCR Not Detected (NotDetected); Mycoplasma Pneumoniae, PCR Not Detected (NotDetected); Parainfluenza 1, PCR Not Detected (NotDetected); Parainfluenza 2, PCR Not Detected (NotDetected); Parainfluenza 3, PCR Not Detected (NotDetected); Parainfluenza 4, PCR Not Detected (NotDetected); Respiratory Syncytial Virus Not Detected (NotDetected); Rhinovirus/Enterovirus Not Detected (NotDetected)
== END 2022-05-05 10:55 | disposition home or self-care (01) ==
PROVIDERS: Emergency Provider Nurse Practitioner Family; PCP Nurse Practitioner Family
DX: J01.90 Acute sinusitis, unspecified (principal); B34.9 Viral infection, unspecified; J02.9 Acute pharyngitis, unspecified; H92.03 Otalgia, bilateral; R51.9 Headache, unspecified; Z20.822 Contact with and (suspected) exposure to COVID-19; Z79.51 Long term (current) use of inhaled steroids; Z79.52 Long term (current) use of systemic steroids; Z79.890 Hormone replacement therapy; Z79.899 Other long term (current) drug therapy; Z87.891 Personal history of nicotine dependence
CPT/HCPCS: 87581; 87632; 87798; 96372; 99213; C9803; G0463; U0003; U0005

== ENCOUNTER 2022-06-08 22:16 | Emergency (ER) | payer OTHER, SELFPAY ==
[2022-06-08 22:17] VITALS: BP 137/75; PULSE 74; RESP 18; TEMP 37; O2SAT 100; BMI 39.0
--- NOTE | 2022-06-08 22:33 | CT_ITS ---
PROCEDURE INFORMATION: Exam: CT Abdomen And Pelvis With Contrast Exam date and time: 06/08/2022 11:07 PM Age: 26 years old Clinical indication: Abdominal pain; Localized; Lower; Additional info: Lower abd pain TECHNIQUE: Imaging protocol: Computed tomography of the abdomen and pelvis with contrast. Radiation optimization: All CT scans at this facility use at least one of these dose optimization techniques: automated exposure control; mA and/or kV adjustment per patient size (includes targeted exams where dose is matched to clinical indication); or iterative reconstruction. Contrast material: ISOVUE; Contrast volume: 75 ml; Contrast route: IV; COMPARISON: US OB /MATERNAL DETAIL 12/11/2019 2:36 PM FINDINGS: Lungs: The lung bases are clear. No pleural effusion. Liver: Unremarkable. No mass. Gallbladder and bile ducts: There are multiple calcified gallstones within the partially contracted gallbladder. No ductal dilation. Pancreas: Unremarkable. Spleen: Unremarkable. Adrenal glands: Unremarkable. Kidneys and ureters: No renal mass or hydronephrosis. Stomach and bowel: Unremarkable. No obstruction. No mucosal thickening. Appendix: The appendix is identified and is normal. Intraperitoneal space: There is a small amount of free pelvic fluid. Retroperitoneal space: No bulky lymphadenopathy. Vasculature: Unremarkable. No abdominal aortic aneurysm. Lymph nodes: Unremarkable. No enlarged lymph nodes. Urinary bladder: Unremarkable as visualized. Reproductive: There is a peripherally enhancing right ovarian cyst measuring 3.2 by 2.3 cm which appears partially collapsed suspicious for corpus luteum cyst. 1 cm nabothian cyst no Bones/joints: Unremarkable. No acute osseous abnormality. Soft tissues: Small umbilical hernia contains fat only. IMPRESSION: 1. Right ovarian cyst measuring 3.2 x 2.3 cm appears partially decompressed consistent with corpus luteum cyst. Small amount of free pelvic fluid. For further characterization, pelvic ultrasound be helpful. 2. Cholelithiasis. 3. Normal appendix.
[2022-06-08 22:45] LABS: Microscopic, Urine URINE MICROSCOPIC (MICROSCOPIC)
[2022-06-08 22:47] LABS: Appearance,Urine CLEAR (Clear); Bilirubin,Urine Negative (Negative); Blood, Urine Negative (Negative); Color,Urine YELLOW (Yellow); Glucose,Urine (UA) Negative (Negative); Ketones,Urine TRACE (Negative); Leukocyte Esterase,Urine Negative (Negative); Nitrate,Urine Negative (Negative); Protein,Urine Negative (Negative); Specific Gravity, Urine >= 1.030 (1.005-1.030); Urobilinogen,Urine 0.2 EU/dl (0.2)
[2022-06-08 22:49] LABS: Basophils # 0.2 K/mm3 (0-0.2); Basophils % 1.5 % (0.1-2.0); Eosinophils # 0.3 K/mm3 (0.0-0.4); Eosinophils % 2.8 % (0.1-12.0); Hematocrit 41.6 % (37.0-47.0); Hemoglobin 13.1 g/dL (12.2-16.2); Lymphocytes # 3.9 K/mm3 (0.7-4.5); Lymphocytes % 33.7 % (10-50); Mean Corpuscular HGB Conc 31.5 g/dL (31.8-35.4); Mean Corpuscular Hemoglobin 29.8 pg (27.0-31.2); Mean Corpuscular Volume 94.8 fl (81-99); Mean Platelet Volume 7.8 fl (7.4-10.4); Monocytes # 0.5 K/mm3 (0.1-1.0); Monocytes % 4.1 % (1.7-9.3); Neutrophils # 6.8 K/mm3 (1.8-7.8); Platelet Count 388 K/mm3 (142-424); Red Blood Count 4.38 M/mm3 (4.20-5.40); Red Cell Distribution Width 12.7 % (11.5-17.5); White Blood Count 11.7 K/mm3 (4.8-10.8)
[2022-06-08 22:50] LABS: Urine Pregnancy, HCG Qual. Negative (Negative)
[2022-06-08 22:53] LABS: Chloride 104 mmol/L (98-107)
[2022-06-08 22:54] LABS: Potassium 3.7 mmoL/L (3.5-5.1); Sodium 142 mmol/L (136-145)
[2022-06-08 22:56] LABS: Alanine Aminotransferase 54 U/L (12-78); Amylase 52 U/L (30-110); Anion Gap 13.7 mEq/L (5-15); Aspartate Amino Transferase 42 U/L (14-36); Blood Urea Nitrogen 10 mg/dl (7-17); Carbon Dioxide 28 mmol/L (22.0-30.0); Creatinine Clearance Estimated 177 mL/min (50-200); Estimated Glomerular Filt Rate 103 ml/min (>60); GFR (African American) 124 ML/MIN (>60)
[2022-06-08 22:57] LABS: Alkaline Phosphatase 86 U/L (38-126); Calcium 8.9 mg/dl (8.4-10.2); Glucose 63 mg/dl (74-100); Lipase 54 U/L (23-300)
[2022-06-08 22:58] LABS: Albumin Level 4.7 g/dl (3.5-5.0); Albumin/Globulin Ratio 1.5 (1.1-1.8); Globulin 3.2 g/dL (1.3-3.2); Total Protein,Serum 7.9 g/dl (6.3-8.2)
[2022-06-08 23:02] LABS: C-Reactive Protein 3.2 mg/L (0-4)
[2022-06-08 23:21] LABS: Bacteria,Urine 4+ /lpf; RBC,Urine Occasional #/hpf (0-3); WBC,Urine Occasional #/hpf (0-3)
[2022-06-08 23:30] LABS: Bilirubin,Total < 0.1 mg/dl (0.2-1.3)
[2022-06-08 23:46] LABS: Erythrocyte Sedimentation Rate 23 mm/hr (0-20)
--- NOTE | 2022-06-08 23:56 | HMH.EDNVD ---
ED Disposition Clinical Impression: Ovarian cyst Qualifiers: Laterality: right Qualified Code(s): N83.201 - Unspecified ovarian cyst, right side Cholelithiasis Qualifiers: Cholelithiasis location: gallbladder Cholecystitis presence: without cholecystitis Biliary obstruction: without biliary obstruction Qualified Code(s): K80.20 - Calculus of gallbladder without cholecystitis without obstruction Disposition: Home, Self-Care Condition on Discharge: Good Instructions: DI for Acute Abdominal Pain Additional Instructions: see obgyn nurse and pcp for follow up Referrals: Sharita Carroll APRN [Primary Care Provider] - - Critical Care Critical Care Time: No Attestation: On 06/08/22, the high probability of a clinically significant, sudden or life threatening deterioration of the following system(s) required my full and direct attention, intervention and personal management. The time I documented below is in addition to time spent performing reported procedures but includes the following listed in this critical care notation. Medical Decision Making - Medical Records Medical records reviewed: Yes: I reviewed the patient's medical records. - David Inquiry Pt receiving controlled substance: No Vital Signs: 06/08/22 22:17 Temperature 98.6 F Temperature Source Oral Pulse Rate [Left Radial] 74 Respiratory Rate 18 Blood Pressure [Right Arm] 137/75 Blood Pressure Mean [Right Arm] 95 Blood Pressure Source [Right Arm] Automatic Cuff Blood Pressure Position [Right Arm] Supine 02 Sat by Pulse Oximetry 100 Oxygen Delivery Method Room Air - Lab Data Lab results reviewed: Yes: I reviewed the patient's lab results. Lab Results 06/08/22 22:20: Urine Color Yellow, Urine Appearance Clear, Urine pH 6.0, Ur Specific Delta >= 1.030, Urine Protein Negative, Urine Glucose (UA) Negative, Urine Ketones Trace, Urine Blood Negative, Urine Nitrate Negative, Urine Bilirubin Negative, Urine Urobilinogen 0.2, Ur Leukocyte Esterase Negative, Urine RBC Occasional, Urine WBC Occasional, Ur Squamous Epith Cells 10-20, Urine Bacteria 4+ 06/08/22 22:20: Urine HCG, Qual Negative 06/08/22 22:30: WBC 11.7 H, RBC 4.38, Hgb 13.1, Hct 41.6, MCV 94.8, MCH 29.8, MCHC 31.5 L, RDW 12.7, Plt Count 388, MPV 7.8, Neut % (Auto) 58.0, Lymph % (Auto) 33.7, [place] % (Auto) 4.1, Eos % (Auto) 2.8, Baso % (Auto) 1.5, Neut # (Auto) 6.8, Lymph # (Auto) 3.9, [place] # (Auto) 0.5, Eos # (Auto) 0.3, Baso # (Auto) 0.2, ESR 23 H 06/08/22 22:30: Sodium 142, Potassium 3.7, Chloride 104, Carbon Dioxide 28, Anion Gap 13.7, BUN 10, Creatinine 0.70, Estimated Creat Clear 177, Estimated GFR 103, Est GFR ( Amer) 124, Glucose 63 L, Calcium 8.9, Total Bilirubin < 0.1 L, AST 42 H, ALT 54, Alkaline Phosphatase 86, C-Reactive Protein 3.2, Total Protein 7.9, Albumin 4.7, Globulin 3.2, Albumin/Globulin Ratio 1.5, Amylase 52, Lipase 54, Procalcitonin < 0.030 Result diagrams: 06/08/22 22:30 06/08/22 22:30 Orders (Tests/Meds): ED MEDICATIONS Generic Name Dose Route Start Last Admin Trade Name Freq PRN Reason Stop Dose Admin Sodium Chloride 1,000 mls @ 999 mls/hr 06/08/22 22:45 06/08/22 22:36 Sod Chlor 0.9% 1000ml Bag IV 06/08/22 23:45 999 mls/hr .Q1H1M NAYELI Administration Sodium Chloride 1,000 mls @ 999 mls/hr 06/08/22 23:45 06/08/22 23:53 Sod Chlor 0.9% 1000ml Bag IV 06/09/22 00:45 999 mls/hr .Q1H1M NAYELI Administration Sodium Chloride 1,000 mls @ 999 mls/hr 06/08/22 23:45 06/08/22 23:59 Sod Chlor 0.9% 1000ml Bag IV 06/09/22 00:45 999 mls/hr .Q1H1M NAYELI Administration Discontinued Medications Generic Name Dose Route Start Last Admin Trade Name Freq PRN Reason Stop Dose Admin Iopamidol 75 ml 06/08/22 23:18 06/08/22 23:19 Iopamidol-370 (76%);100ml Bottle IV 06/08/22 23:19 75 ml ONCE ONE Administration Ketorolac Tromethamine 30 mg 06/08/22 22:35 06/08/22 23:31 Ketorolac 30mg/Ml Vial IV 06/08/22 22:36 30 mg ONCE ONE Administrat
[2022-06-09 01:27] LABS: Procalcitonin < 0.030 ng/mL (0.0-2.0)
--- NOTE | 2022-06-09 01:50 | PC.NURSE ---
pt ambulated to bathroom, christine mist given to pts spouse. no other needs at this time.
[2022-06-09 02:13] VITALS: BP 116/77; PULSE 78; RESP 16; TEMP 36.7; O2SAT 98
== END 2022-06-09 02:19 | disposition home or self-care (01) ==
PROVIDERS: Emergency Provider Emergency Medicine; PCP Nurse Practitioner Family
DX: N83.201 Unspecified ovarian cyst, right side (principal); K80.20 Calculus of gallbladder without cholecystitis without obstruction
CPT/HCPCS: 74177; 80053; 81001; 81025; 82150; 83690; 84145; 85025; 85651; 86140; 87086; 96361; 96374; 99284; Q9967

== ENCOUNTER 2022-07-24 09:31 | Emergency (ER) | payer OTHER, SELFPAY ==
[2022-07-24 10:06] VITALS: BP 141/90; PULSE 75; RESP 19; TEMP 37; O2SAT 98; BMI 34.0
--- NOTE | 2022-07-24 10:09 | EXP.UTC ---
Discharge Plan Disposition Patient Disposition: Home, Self-Care Condition: Good Prescriptions Prescriptions: New benzonatate 100 mg capsule 100 mg PO TID PRN (Reason: cough) Qty: 20 0RF methylprednisolone [Medrol (Prabhu)] 4 mg tablets,dose pack See Rx Instructions .Route .COMPLEX 6 Days Qty: 21 0RF Rx Instructions: taper pack; fluticasone propionate [fluticasone propionate] 50 mcg/actuation spray,suspension 1 spr intranasal DAILY Qty: 1 0RF No Action buspirone 10 mg tablet 10 mg PO BID Qty: 60 2RF viloxazine 200 mg capsule,extended release 24hr 400 mg PO DAILY Qty: 60 2RF etonogestrel-ethinyl estradiol [NuvaRing] 0.12-0.015 mg/24 hr ring 1 vag ring VAGINAL Q4W Qty: 3 12RF Rx Instructions: leave in place for 3 weeks of a 4-week cycle albuterol sulfate 8.5 GM HFA aerosol inhaler 2 puffs IH Q4HP PRN (Reason: Wheezing) 30 Days Qty: 1 0RF Referrals Follow up/Referrals: Sharita Carroll APRN [Primary Care Provider] - See instructions Activity Restrictions/Add. Instructions Additional Instructions/Restrictions: *Monitor Temp, Over the counter Motrin or Tylenol as directed/as needed Tylenol every 4 hours and Motrin every 6 hours (as long as your family doctor has told you that you can take it) for fever or pain. and straight to ER if unable to lower temp less than 101.0 after medication given *Warm salt water gargles may help to soothe the throat *Throat Lozenges? *Warm fluids like tea with honey may help to soothe the throat? *Sleep elevated *Humidifier/Vaporizer *Flonase 2 sprays in each nostril daily but be aware that it may take 2-3 days before you notice improvement Follow up IMMEDIATELY for new or worsening symptoms or no Noticeable improvement over the next 48-72 hours. 911 for difficulty breathing or swallowing You were tested for today for COVID19 your test result should be back in the next 24-48 hours, you may check your results on the [facility] My Health Portal Make sure to take your Vitamins Vit. C Vit D and Zinc if you can take them Clinical Impressions Clinical Impression: Allergic rhinitis Stand Alone Forms Stand Alone Forms: Work/School Release Instructions Patient Instructions: Allergic Rhinitis, DI for Nasal Congestion Discharge ED Provider: Shari Zimmerman [facility] [place] General Stated complaint: congestion, sinus pressure, cough, sore throat Mode of Arrival: Ambulatory Source of Information: Patient Limitations: No Limitations Time Seen by Provider: 07/24/22 10:10 Description of Symptoms (Recalled from Triage Doc. by RN): C/O stuffy nose, sore throat, POLLOCK, cough since yesterday HEENT Symptoms (Recalled from RN notes): Yes (stuffy nose, sore throat, POLLOCK) Resp Symptoms (Recalled from RN notes): Yes (cough) Skin Symptoms (Recalled from RN notes): No MS Symptoms (Recalled from RN notes): No Functional Status (Recalled from RN notes): n/a History of Present Illness Provider Complaint: Patient states that she has been having sinus congestion, cough, headache and scratchy throat State that this morning she had some diarrhea States that she works in [employer] and not sure if she may have been exposed to COVID or not States that this morning she wasnt feeling any better so she came in to get checked out Related Data Previous Rx's Medication Instructions Recorded albuterol sulfate 90 mcg/actuation 2 puffs inhalation Q4HP PRN 04/04/21 aerosol inhaler Wheezing 30 days ##1 etonogestrel 0.12 mg-ethinyl 1 vag ring vaginal Q4W #3 ea 04/30/21 estradiol 0.015 mg/24 hr vaginal ring (NuvaRing) buspirone 10 mg tablet 10 mg PO BID Anxiety #60 tabs 07/22/22 viloxazine 200 mg capsule,extended 400 mg PO DAILY adhd F90.9 #60 caps 07/22/22 release 24 hr benzonatate 100 mg capsule 100 mg PO TID PRN cough #20 caps 07/24/22 fluticasone propionate 50 1 spr intranasal DAILY #1 mL 07/24/22 mcg/actuation nasal spray,suspension methylprednisolone 4 m
[2022-07-24 10:33] VITALS: BP 141/90; PULSE 75; RESP 19; TEMP 37; O2SAT 98
[2022-07-24 11:49] LABS: Adenovirus,PCR Not Detected (NotDetected); Bordetella Pertussis Not Detected (NotDetected); Chlamydophila Pneumoniae, PCR Not Detected (NotDetected); Coronavirus 19, PCR Not Detected (NotDetected); Coronavirus 229E Not Detected (NotDetected); Coronavirus NL63 Not Detected (NotDetected); Coronavirus OC43 Not Detected (NotDetected); Coronovirus HKU1,PCR Not Detected (NotDetected); Human Metapneumovirus Not Detected (NotDetected); Influenza A, PCR Not Detected (NotDetected); Influenza AH1, 2009 Not Detected (NotDetected); Influenza AH1, PCR Not Detected (NotDetected); Influenza AH3,PCR Not Detected (NotDetected); Influenza B, PCR Not Detected (NotDetected); Mycoplasma Pneumoniae, PCR Not Detected (NotDetected); Parainfluenza 1, PCR Not Detected (NotDetected); Parainfluenza 2, PCR Not Detected (NotDetected); Parainfluenza 3, PCR Not Detected (NotDetected); Parainfluenza 4, PCR Not Detected (NotDetected); Respiratory Syncytial Virus Not Detected (NotDetected); Rhinovirus/Enterovirus Not Detected (NotDetected)
== END 2022-07-24 10:35 | disposition home or self-care (01) ==
PROVIDERS: Emergency Provider Nurse Practitioner; PCP Nurse Practitioner Family
DX: J30.9 Allergic rhinitis, unspecified (principal); J02.9 Acute pharyngitis, unspecified; R05.9 Cough, unspecified; R51.9 Headache, unspecified; F41.1 Generalized anxiety disorder; F90.9 Attention-deficit hyperactivity disorder, unspecified type; Z20.822 Contact with and (suspected) exposure to COVID-19; Z79.52 Long term (current) use of systemic steroids; Z79.899 Other long term (current) drug therapy; Z87.891 Personal history of nicotine dependence
CPT/HCPCS: 87581; 87632; 87798; 99213; C9803; G0463; U0003; U0005

== ENCOUNTER 2022-08-23 09:16 | Emergency (ER) | payer OTHER, SELFPAY ==
[2022-08-23 09:40] VITALS: BP 130/73; PULSE 88; RESP 20; TEMP 36.7; O2SAT 96; BMI 32.8
--- NOTE | 2022-08-23 10:21 | EXP.UTC ---
Discharge Plan Disposition Patient Disposition: Home, Self-Care Condition: Good Prescriptions Prescriptions: No Action buspirone 10 mg tablet 10 mg PO BID Qty: 60 2RF viloxazine 200 mg capsule,extended release 24hr 400 mg PO DAILY Qty: 60 2RF etonogestrel-ethinyl estradiol [NuvaRing] 0.12-0.015 mg/24 hr ring 1 vag ring VAGINAL Q4W Qty: 3 12RF Rx Instructions: leave in place for 3 weeks of a 4-week cycle albuterol sulfate 8.5 GM HFA aerosol inhaler 2 puffs IH Q4HP PRN (Reason: Wheezing) 30 Days Qty: 1 0RF benzonatate 100 mg capsule 100 mg PO TID PRN (Reason: cough) Qty: 20 0RF methylprednisolone [Medrol (Prabhu)] 4 mg tablets,dose pack See Rx Instructions .Route .COMPLEX 6 Days Qty: 21 0RF Rx Instructions: taper pack; fluticasone propionate [fluticasone propionate] 50 mcg/actuation spray,suspension 1 spr intranasal DAILY Qty: 1 0RF Referrals Follow up/Referrals: Sharita Carroll APRN [Primary Care Provider] - See instructions Activity Restrictions/Add. Instructions Additional Instructions/Restrictions: No sign of a bacterial infection. Likely viral. Viruses can take 7-14 days to run their course. Nasal saline and bulb syringe or nose Laurie to remove nasal drainage to help with nasal congestion. Hard to eat, drink, sleep with nasal congestion so important to keep this cleaned out. Monitor temp. Tylenol or Motrin as needed for pain or fever Encourage fluids, water, Gatorade, Powerade, Pedialyte if infant/toddler/child Warm salt water gargles Warm fluids Sore throat lozenges Sleep elevated Humidifier/vaporizer Follow-up immediately for new or worsening symptoms or no noticeable improvement over the next 48-72 hours. Clinical Impressions Clinical Impression: Upper respiratory infection Instructions Patient Instructions: DI for Viral Upper Respiratory Infection -- Adult Discharge ED Provider: Lucia ([facility] [facility] [place] General Stated complaint: Congestion, Sinus pressure Mode of Arrival: Ambulatory Source of Information: Patient Limitations: No Limitations Time Seen by Provider: 08/23/22 10:21 Description of Symptoms (Recalled from Triage Doc. by RN): PATIENT C/O CONGESTION, GREEN MUCOUS AND SINUS SINUS PRESSURE X 2 DAYS HEENT Symptoms (Recalled from RN notes): Yes Resp Symptoms (Recalled from RN notes): No Skin Symptoms (Recalled from RN notes): No MS Symptoms (Recalled from RN notes): No Functional Status (Recalled from RN notes): WNL History of Present Illness Provider Complaint: 27 yr old female presents for cough and clear nasal congestion Related Data Previous Rx's Medication Instructions Recorded albuterol sulfate 90 mcg/actuation 2 puffs inhalation Q4HP PRN 04/04/21 aerosol inhaler Wheezing 30 days ##1 etonogestrel 0.12 mg-ethinyl 1 vag ring vaginal Q4W #3 ea 04/30/21 estradiol 0.015 mg/24 hr vaginal ring (NuvaRing) buspirone 10 mg tablet 10 mg PO BID Anxiety #60 tabs 07/22/22 viloxazine 200 mg capsule,extended 400 mg PO DAILY adhd F90.9 #60 caps 07/22/22 release 24 hr benzonatate 100 mg capsule 100 mg PO TID PRN cough #20 caps 07/24/22 fluticasone propionate 50 1 spr intranasal DAILY #1 mL 07/24/22 mcg/actuation nasal spray,suspension methylprednisolone 4 mg tablets in See Rx Instructions .Route 07/24/22 a dose pack (Medrol (Prabhu)) .COMPLEX 6 days #21 tabs Allergies Allergy/AdvReac Type Severity Reaction Status Date / Time No Known Allergies Allergy Verified 07/22/22 11:06 Worker's Comp Is this a Worker's Comp case?: No PFSH PFSH Medical History , MAILING MANAGER) Attention deficit disorder (ADD) in adult Generalized anxiety disorder Social History , MAILING MANAGER) Smoking Status: Former smoker second hand exposure: No alcohol intake: current substance use type: marijuana, amphetamines and methamphetamine current occupational
[2022-08-23 10:31] VITALS: BP 130/73; PULSE 88; RESP 20; TEMP 36.7; O2SAT 96
[2022-08-23 10:36] LABS: UTC Influenza A Antigen Negative (Negative); UTC Influenza B Antigen Negative (Negative)
== END 2022-08-23 10:58 | disposition home or self-care (01) ==
PROVIDERS: Emergency Provider Nurse Practitioner Family; PCP Nurse Practitioner Family
DX: J06.9 Acute upper respiratory infection, unspecified (principal)
CPT/HCPCS: 87804; 99212; G0463

== ENCOUNTER 2022-09-06 08:50 | Emergency (ER) | payer OTHER, SELFPAY ==
[2022-09-06 09:25] VITALS: BP 119/76; PULSE 72; RESP 18; TEMP 36.6; O2SAT 98; BMI 31.4
--- NOTE | 2022-09-06 09:44 | EXP.UTC ---
Discharge Plan Disposition Patient Disposition: Home, Self-Care Condition: Good Prescriptions Prescriptions: New azithromycin [azithromycin] 250 mg tablet 250 mg PO DIRECTED Qty: 6 0RF Rx Instructions: Take two (2) tablets on day #1, then one (1) tablet day #2 thru #5 fluticasone propionate [fluticasone propionate] 50 mcg/actuation spray,suspension 1 spray intranasal DAILY Qty: 9.9 0RF No Action buspirone 10 mg tablet 10 mg PO BID Qty: 60 2RF viloxazine 200 mg capsule,extended release 24hr 400 mg PO DAILY Qty: 60 2RF etonogestrel-ethinyl estradiol [NuvaRing] 0.12-0.015 mg/24 hr ring 1 vag ring VAGINAL Q4W Qty: 3 12RF Rx Instructions: leave in place for 3 weeks of a 4-week cycle albuterol sulfate 8.5 GM HFA aerosol inhaler 2 puffs IH Q4HP PRN (Reason: Wheezing) 30 Days Qty: 1 0RF benzonatate 100 mg capsule 100 mg PO TID PRN (Reason: cough) Qty: 20 0RF methylprednisolone [Medrol (Prabhu)] 4 mg tablets,dose pack See Rx Instructions .Route .COMPLEX 6 Days Qty: 21 0RF Rx Instructions: taper pack; fluticasone propionate [fluticasone propionate] 50 mcg/actuation spray,suspension 1 spr intranasal DAILY Qty: 1 0RF Referrals Follow up/Referrals: Sharita Carroll APRN [Primary Care Provider] - See instructions Activity Restrictions/Add. Instructions Additional Instructions/Restrictions: Start antibiotic patient to take as ordered for a full length of time even if you feel better. Sinus infections do not get better overnight. It may take 2-3 days to notice much improvement so be sure to use conservative measures as discussed for symptoms. Flonase 1 spray each nostril daily to help with nasal congestion, sinus and ear pressure/information Increase fluids Humidifier/vaporizer as needed Tylenol and ibuprofen as needed for fever or pain. If symptoms do not improve or get worse return or be seen in the ER Follow-up with primary care this week Clinical Impressions Clinical Impression: Acute maxillary sinusitis Instructions Patient Instructions: DI for Sinusitis Discharge ED Provider: Lucia ([facility])[place] [facility] [place] General Stated complaint: Rt side of face has sinus pressure, runny nose Mode of Arrival: Ambulatory Source of Information: Patient Limitations: No Limitations Time Seen by Provider: 09/06/22 09:44 HEENT Symptoms (Recalled from RN notes): Yes History of Present Illness Provider Complaint: 27 yr old female presents for green sinus drainage, sinus pressure worse on the rt side and cough. Related Data Previous Rx's Medication Instructions Recorded albuterol sulfate 90 mcg/actuation 2 puffs inhalation Q4HP PRN 04/04/21 aerosol inhaler Wheezing 30 days ##1 etonogestrel 0.12 mg-ethinyl 1 vag ring vaginal Q4W #3 ea 04/30/21 estradiol 0.015 mg/24 hr vaginal ring (NuvaRing) buspirone 10 mg tablet 10 mg PO BID Anxiety #60 tabs 07/22/22 viloxazine 200 mg capsule,extended 400 mg PO DAILY adhd F90.9 #60 caps 07/22/22 release 24 hr benzonatate 100 mg capsule 100 mg PO TID PRN cough #20 caps 07/24/22 fluticasone propionate 50 1 spr intranasal DAILY #1 mL 07/24/22 mcg/actuation nasal spray,suspension methylprednisolone 4 mg tablets in See Rx Instructions .Route 07/24/22 a dose pack (Medrol (Prabhu)) .COMPLEX 6 days #21 tabs azithromycin 250 mg tablet 250 mg PO DIRECTED #6 tabs 09/06/22 fluticasone propionate 50 1 spray intranasal DAILY #9.9 mL 09/06/22 mcg/actuation nasal spray,suspension Allergies Allergy/AdvReac Type Severity Reaction Status Date / Time No Known Allergies Allergy Verified 07/22/22 11:06 [facility] Medical History , CLINICAL ASSISTANT) Attention deficit disorder (ADD) in adult Generalized anxiety disorder Social History , CLINICAL ASSISTANT) Smoking Status: Former smoker second hand exposure: No alcohol intake: current sub
[2022-09-06 09:55] VITALS: BP 119/76; PULSE 72; RESP 18; TEMP 36.6; O2SAT 98
== END 2022-09-06 09:57 | disposition home or self-care (01) ==
PROVIDERS: Emergency Provider Nurse Practitioner Family; PCP Nurse Practitioner Family
DX: J01.01 Acute recurrent maxillary sinusitis (principal)
CPT/HCPCS: 99212; G0463

== ENCOUNTER 2022-11-06 09:02 | Emergency (ER) | payer BC, SELFPAY ==
[2022-11-06 09:10] VITALS: BP 134/71; PULSE 81; RESP 20; TEMP 36.6; O2SAT 96; BMI 35.9
--- NOTE | 2022-11-06 09:24 | EXP.UTC ---
Discharge Plan Disposition Patient Disposition: Home, Self-Care Condition: Good Prescriptions Prescriptions: New azithromycin [Zithromax] 250 mg tablet 250 mg PO UD DOSE PK Qty: 6 0RF Rx Instructions: Take two (2) tablets today, then one (1) tablet days #2 thru #5 benzonatate [benzonatate] 100 mg capsule 100 mg PO TIDP PRN (Reason: Cough) Qty: 30 0RF methylprednisolone 4 mg Tablets,Dose Pack 4 mg PO DIRECTED Qty: 21 0RF albuterol sulfate [Ventolin HFA] 90 mcg/actuation HFA aerosol inhaler 2 puff inhalation Q6H PRN (Reason: shortness of breath or wheezing) Qty: 6.7 0RF No Action buspirone 10 mg tablet 10 mg PO BID Qty: 60 2RF viloxazine 200 mg capsule,extended release 24hr 400 mg PO DAILY Qty: 60 2RF etonogestrel-ethinyl estradiol [NuvaRing] 0.12-0.015 mg/24 hr ring 1 vag ring VAGINAL Q4W Qty: 3 12RF Rx Instructions: leave in place for 3 weeks of a 4-week cycle albuterol sulfate 8.5 GM HFA aerosol inhaler 2 puffs IH Q4HP PRN (Reason: Wheezing) 30 Days Qty: 1 0RF Referrals Follow up/Referrals: Sharita Carroll APRN [Primary Care Provider] - See instructions Activity Restrictions/Add. Instructions Additional Instructions/Restrictions: Drink plenty of fluids. Take tylenol or ibuprofen for pain or fever. Take the medications as directed. Follow up with your regular doctor. GO TO THE ER FOR ANY WORSENING SYMPTOMS Clinical Impressions Clinical Impression: Acute bronchitis, Viral syndrome Instructions Patient Instructions: Asthma -- Adult, DI for Asthma -- Adult Discharge ED Provider: Silvano Schaeffer [facility] General Stated complaint: SOA, Congestion, drainage Mode of Arrival: Ambulatory Source of Information: Patient Limitations: No Limitations Time Seen by Provider: 11/06/22 09:19 Description of Symptoms (Recalled from Triage Doc. by RN): PATIENT C/O SOA, COUGH WITH GREEN MUCOUS AND NASAL CONGESTION THAT STARTED LAST NIGHT HEENT Symptoms (Recalled from RN notes): Yes Resp Symptoms (Recalled from RN notes): Yes Skin Symptoms (Recalled from RN notes): No MS Symptoms (Recalled from RN notes): No Functional Status (Recalled from RN notes): WNL History of Present Illness Provider Complaint: She states that for the past 4 days she has had sinus congestion, chest congestion, productive cough, and malaise. She has a history of asthma. Related Data Previous Rx's Medication Instructions Recorded albuterol sulfate 90 mcg/actuation 2 puffs inhalation Q4HP PRN 04/04/21 aerosol inhaler Wheezing 30 days ##1 etonogestrel 0.12 mg-ethinyl 1 vag ring vaginal Q4W #3 ea 04/30/21 estradiol 0.015 mg/24 hr vaginal ring (NuvaRing) buspirone 10 mg tablet 10 mg PO BID Anxiety #60 tabs 09/23/22 viloxazine 200 mg capsule,extended 400 mg PO DAILY adhd F90.9 #60 caps 09/23/22 release 24 hr albuterol sulfate 90 mcg/actuation 2 puff inhalation Q6H PRN 11/06/22 aerosol inhaler (Ventolin HFA) shortness of breath or wheezing #6.7 grams azithromycin 250 mg tablet 250 mg PO UD DOSE PK #6 tabs 11/06/22 (Zithromax) benzonatate 100 mg capsule 100 mg PO TIDP PRN Cough #30 caps 11/06/22 methylprednisolone 4 mg tablets in 4 mg PO DIRECTED #21 tabs 11/06/22 a dose pack Allergies Allergy/AdvReac Type Severity Reaction Status Date / Time No Known Allergies Allergy Verified 09/23/22 11:18 Worker's Comp Is this a Worker's Comp case?: No [facility] Disclaimer: The information contained in this section may have been updated after the patient was seen, as this information can be updated by other users. Medical History Asthma Attention deficit disorder (ADD) in adult Generalized anxiety disorder Insomnia Social History Smoking Status: Former smoker second hand exposure: No alcohol intake: current substance use type: marijuana, amphetamines a
[2022-11-06 09:44] VITALS: BP 134/71; PULSE 81; RESP 20; TEMP 36.6; O2SAT 96
== END 2022-11-06 09:50 | disposition home or self-care (01) ==
PROVIDERS: Emergency Provider Nurse Practitioner Family; PCP Nurse Practitioner Family
DX: J20.9 Acute bronchitis, unspecified (principal)
CPT/HCPCS: 99212; 99213; C9803; G0463; U0003; U0005

== ENCOUNTER 2023-01-29 10:31 | Emergency (ER) | payer BC, SELFPAY ==
[2023-01-29 11:15] VITALS: BP 121/70; PULSE 80; RESP 16; TEMP 36.7; O2SAT 98; BMI 38.5
[2023-01-29 11:46] LABS: UTC Strep Screen (Rapid) Negative (Negative)
--- NOTE | 2023-01-29 11:53 | EXP.UTC ---
Discharge Plan Disposition Patient Disposition: Home, Self-Care Condition: Good Prescriptions Prescriptions: New amoxicillin 875 mg tablet 875 mg PO BID 10 Days Qty: 20 0RF No Action buspirone 10 mg tablet 10 mg PO BID Qty: 60 2RF viloxazine 200 mg capsule,extended release 24hr 600 mg PO DAILY Qty: 90 2RF etonogestrel-ethinyl estradiol [NuvaRing] 0.12-0.015 mg/24 hr ring 1 vag ring VAGINAL Q4W Qty: 3 12RF Rx Instructions: leave in place for 3 weeks of a 4-week cycle albuterol sulfate [Ventolin HFA] 90 mcg/actuation HFA aerosol inhaler 2 puff inhalation Q6H PRN (Reason: shortness of breath or wheezing) Qty: 6.7 0RF Referrals Follow up/Referrals: Charley Mcdaniel APRN [Primary Care Provider] - See instructions Clinical Impressions Clinical Impression: Acute pharyngitis Instructions Patient Instructions: DI for Pharyngitis/Tonsillopharyngitis -- Adult Discharge ED Provider: Akila Leos [facility] General Stated complaint: sore throat Mode of Arrival: Ambulatory Source of Information: Patient Limitations: No Limitations Time Seen by Provider: 01/29/23 11:53 Description of Symptoms (Recalled from Triage Doc. by RN): PATIENT C/O SORE THROAT AND SWOLLEN LYMPH NODES TO LEFT SIDE HEENT Symptoms (Recalled from RN notes): Yes Resp Symptoms (Recalled from RN notes): No Skin Symptoms (Recalled from RN notes): No MS Symptoms (Recalled from RN notes): No Functional Status (Recalled from RN notes): WNL History of Present Illness Provider Complaint: Pt states that she has had a sore throat with swollen lymph nodes for the last 2 days. She states that she has not taken anything for her symptoms. She denies any sick contact. Related Data Previous Rx's Medication Instructions Recorded etonogestrel 0.12 mg-ethinyl 1 vag ring vaginal Q4W #3 ea 04/30/21 estradiol 0.015 mg/24 hr vaginal ring (NuvaRing) albuterol sulfate 90 mcg/actuation 2 puff inhalation Q6H PRN 11/06/22 aerosol inhaler (Ventolin HFA) shortness of breath or wheezing #6.7 grams buspirone 10 mg tablet 10 mg PO BID Anxiety #60 tabs 01/06/23 viloxazine 200 mg capsule,extended 600 mg PO DAILY adhd F90.9 #90 caps 01/06/23 release 24 hr amoxicillin 875 mg tablet 875 mg PO BID 10 days #20 tabs 01/29/23 Allergies Allergy/AdvReac Type Severity Reaction Status Date / Time No Known Allergies Allergy Verified 01/14/23 14:20 Worker's Comp Is this a Worker's Comp case?: No [facility] Disclaimer: The information contained in this section may have been updated after the patient was seen, as this information can be updated by other users. Medical History Asthma Attention deficit disorder (ADD) in adult Generalized anxiety disorder Insomnia Social History Smoking Status: Former smoker second hand exposure: No alcohol intake: current substance use type: marijuana, amphetamines and methamphetamine current occupational status: other Travel in the last 8 weeks: None number of children: 2 ROS Obtained: Yes All systems reviewed & no additional complaints except as documented Constitutional Constitutional: Reports as per HPI and Reports malaise Eyes Eyes: Reports system reviewed and no additional complaints, except as documented ENT Ears, Nose, Mouth, and Throat: Reports as per HPI, Reports neck pain, Reports odynophagia and Reports sore throat Cardiovascular Cardiovascular: Reports system reviewed and no additional complaints, except as documented Respiratory Respiratory: Reports system reviewed and no additional complaints, except as documented Gastrointestinal Gastrointestingal: Reports system reviewed and no additional complaints, except as documented and odynophagia Genitourinary Female Genitourinary: Reports system reviewed and no additional complaints, except as documented Musculoskeletal Mu
[2023-01-29 12:05] VITALS: BP 121/70; PULSE 80; RESP 16; TEMP 36.7; O2SAT 98
== END 2023-01-29 12:08 | disposition home or self-care (01) ==
PROVIDERS: Emergency Provider Nurse Practitioner Family; PCP Nurse Practitioner Family
DX: J02.9 Acute pharyngitis, unspecified (principal); Z87.891 Personal history of nicotine dependence
CPT/HCPCS: 87880; 99212; 99214; G0463

== ENCOUNTER → 2023-02-16 12:17 | Outpatient (CLI) | payer BC, SELFPAY ==
[2023-02-16 12:37] VITALS: BMI 38.7
== END ==
PROVIDERS: PCP Nurse Practitioner Family; Visit Provider Nurse Practitioner Family
DX: Z68.38 Body mass index [BMI] 38.0-38.9, adult (principal); R74.8 Abnormal levels of other serum enzymes; I71.40 Abdominal aortic aneurysm, without rupture, unspecified; Z71.3 Dietary counseling and surveillance
CPT/HCPCS: 97802

== ENCOUNTER → 2023-04-16 06:49 | Outpatient (CLI) | payer BC, SELFPAY ==
--- NOTE | 2023-04-16 06:56 | US_ITS ---
FINAL REPORT TECHNIQUE: Multiple transverse and longitudinal images CLINICAL HISTORY: CHRONIC HEPATITIS C FINDINGS: There are multiple gallstones present in the gallbladder. In addition there is a small 6 mm focus in the non dependent portion of the gallbladder which is also nonshadowing that most likely represents a small polyp. No biliary ductal dilatation is appreciated. No fluid collections are seen. Limited portions of the liver reveal focal areas of fatty infiltration of the liver. Limited portions of the right kidney are unremarkable. IMPRESSION: Multiple gallstones present in the gallbladder with a probable 6 mm polyp in the nondependent portion of the gallbladder. Focal fatty infiltration of the liver. Reviewed, Interpreted and Dictated by Bryant Sanches MD Transcribed by Ruby Lewis Authenticated and [facility]
== END ==
PROVIDERS: PCP Nurse Practitioner Family; Visit Provider Physician Assistant
DX: B18.2 Chronic viral hepatitis C (principal)
CPT/HCPCS: 76705

== ENCOUNTER → 2023-08-03 10:19 | Outpatient (CLI) | payer BC, SELFPAY ==
[2023-08-03 10:40] LABS: Basophils # 0.1 K/mm3 (0-0.2); Basophils % 0.8 % (0.1-2.0); Eosinophils # 0.3 K/mm3 (0.0-0.4); Eosinophils % 3.8 % (0.1-12.0); Hematocrit 43.6 % (37.0-47.0); Lymphocytes % 39.2 % (10-50); Mean Corpuscular HGB Conc 32.1 g/dL (31.8-35.4); Mean Corpuscular Hemoglobin 30.3 pg (27.0-31.2); Mean Corpuscular Volume 94.2 fl (81-99); Monocytes # 0.4 K/mm3 (0.1-1.0); Monocytes % 5.1 % (1.7-9.3); Neutrophils # 3.9 K/mm3 (1.8-7.8); Neutrophils % 51.1 % (37.0-80.0); Platelet Count 308 K/mm3 (142-424); Red Blood Count 4.63 M/mm3 (4.20-5.40); Red Cell Distribution Width 12.7 % (11.5-17.5); White Blood Count 7.7 K/mm3 (4.8-10.8)
[2023-08-03 12:22] LABS: Chloride 107 mmol/L (98-107)
[2023-08-03 12:23] LABS: Potassium 4.5 mmoL/L (3.5-5.1); Sodium 138 mmol/L (136-145)
[2023-08-03 12:25] LABS: Alanine Aminotransferase 22 U/L (12-78); Albumin Level 4.1 g/dl (3.5-5.0); Albumin/Globulin Ratio 1.4 (1.1-1.8); Alkaline Phosphatase 78 U/L (38-126); Anion Gap 11.5 mEq/L (5-15); Aspartate Amino Transferase 22 U/L (14-36); Bilirubin,Total 0.2 mg/dl (0.2-1.3); Blood Urea Nitrogen 12 mg/dl (7-17); Calcium 8.6 mg/dl (8.4-10.2); Carbon Dioxide 24 mmol/L (22.0-30.0); Estimated Glomerular Filt Rate 101 ml/min (>60); GFR (African American) 122 ML/MIN (>60); Globulin 2.9 g/dL (1.3-3.2); Glucose 111 mg/dl (74-100)
== END ==
PROVIDERS: PCP Nurse Practitioner Family; Visit Provider Surgery
DX: K80.20 Calculus of gallbladder without cholecystitis without obstruction (principal)
CPT/HCPCS: 36415; 80053; 85025

== ENCOUNTER 2023-08-30 06:56 | Day surgery (SDC) | payer BC, SELFPAY ==
[2023-08-25 16:58] VITALS: BMI 39.0
[2023-08-30] VITALS (9 sets, daily range): BP systolic 107–143; BP diastolic 62–79; PULSE 70–105; RESP 18–24; TEMP 36.2–43; O2SAT 98–100
[2023-08-30 07:44] LABS: Urine Pregnancy, HCG Qual. Negative (Negative)
--- NOTE | 2023-08-30 08:10 | P.PNANES_ITS ---
[facility] Disclaimer: The information contained in this section may have been updated after the patient was seen, as this information can be updated by other users. 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 Travel in the last 8 weeks: None number of children: 2 [facility] Anesthesia Checklist Patient Identification Patient Identification: Verbal (Name & ) Structural Data Admitted From: Home Planned Operative Procedure/s: lap rosanna Consent for Planned Operative Procedure(s) Verified: Yes NPO Status Verified Time NPO: 00:00 Additional verifications Anesthesia Reactions: No Hx Blood Transfusions: No Blood Transfusion Reaction: No Airway Assessment Mallampati Score:: Class II C-Spine Mobility Assessed: Yes TMJ Mobility Assessed: Yes Dentition: Good Dentition Neurological Assessment Level of Consciousness: Awake, Alert and Appropriate Anesthesia Plan Anesthesia Risk discussed: Yes Anesthesia Plan: Verified ASA Class: II Anesthesia Type: General
--- NOTE | 2023-08-30 09:05 | P.PNANES_ITS ---
[facility] Disclaimer: The information contained in this section may have been updated after the patient was seen, as this information can be updated by other users. 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 Travel in the last 8 weeks: None number of children: 2 [facility] Anesthesia Checklist Patient Identification Patient Identification: Verbal (Name & ) Structural Data Admitted From: Home Planned Operative Procedure/s: HILDA Consent for Planned Operative Procedure(s) Verified: Yes NPO Status Verified Time NPO: 00:00 Additional verifications Anesthesia Reactions: No Hx Blood Transfusions: No Blood Transfusion Reaction: No Airway Assessment Mallampati Score:: Class II C-Spine Mobility Assessed: Yes TMJ Mobility Assessed: Yes Dentition: Dentures-good fit Neurological Assessment Level of Consciousness: Awake, Alert and Appropriate Anesthesia Plan Anesthesia Risk discussed: Yes Anesthesia Plan: Verified ASA Class: III Anesthesia Type: MAC
--- NOTE | 2023-08-30 10:03 | EXP.OP.NOTE ---
Date of procedure: 08/30/23 Pre-op Diagnosis:: Symptomatic gallstones Post-op Diagnosis:: Same Procedure performed:: Laparoscopic cholecystectomy Surgeon:: Zuhair Steward MD [employer]KE [employer]OE REBUILDER:: Other Anesthesia: GETA Estimated blood loss (mL): 15 Clinical Note:: Patient presents for gallbladder surgery. She is a 28-year-old female whom I had seen in the office initially on 05/25/2023 after referral by gastroenterology at [facility]. She has a history of hepatitis C. She had, at that time, just started hepatitis C treatment. Part of her work-up included a liver ultrasound routinely which revealed multiple gallstones. At the time she did seemingly have some possible symptomatology as she stated that if she ate anything spicy or tomato-based that she had abdominal pain. Recommendations were for her to undergo hepatitis treatment and follow-up for consideration of cholecystectomy after complete treatment. She has completed treatment. Gastroenterology felt that much of her symptoms of postprandial epigastric pain were likely biliary in etiology. She is following up with gastroenterology in October. She describes postprandial symptoms worse with tomato-based type foods. She does have a family history with her mother and grandmother both requiring cholecystectomy. She has a history of chronic constipation. I had discussed the options with her. She wished to pursue cholecystectomy. Of note, I have seen her in consultation for possible gallbladder issues. Operative findings:: She had a distended gallbladder with a couple of small stones in the neck of the gallbladder. Operative note:: Patient was taken to the operating room. She was given preoperative intravenous antibiotics. In the operating room she was placed in a supine position. General anesthesia was induced via endotracheal tube. Abdomen was prepped and draped in the standard surgical fashion. Subumbilical skin incision was made. Dissection was carried down to fascia. While performing abdominal wall lift Veress needle was inserted. CO2 pneumoperitoneum was achieved to 15 mmHg. 11 mm optical trocar was inserted at the umbilicus. Intraperitoneal contents were visualized. She was positioned in reverse Trendelenburg and left side down. A couple of 5 mm trocars were inserted in the right upper abdomen. 11 mm trocar was inserted in the epigastrium. Gallbladder was grasped retracted anteriorly and superiorly over the dome of the liver. Infundibulum of the gallbladder was retracted anterior laterally. She had some appreciable scarring and inflammation around the neck of the gallbladder and delineation and dissection of the cystic duct was somewhat difficult. Ultimately the cystic duct and cystic artery were clearly identified in the critical view of safety. Cystic duct was isolated, multiply clipped, and sharply divided. Cystic artery was carefully coagulated with HAO ultrasonic robotic randy and divided. Gallbladder was dissected free from the liver in a retrograde fashion using HAO ultrasonic robotic randy. Gallbladder was placed within an Endo Catch retrieval device and removed from the peritoneal cavity via the umbilical trocar site. Gallbladder fossa was inspected for hemostasis which was assured. Trocars were removed as CO2 pneumoperitoneum was evacuated. Fascia at the umbilicus was closed with 0 Vicryl suture. Local anesthetic was infiltrated. Skin incision was closed with 4 Monocryl in subcuticular fashion. Dermabond and dressings were applied. Condition: stable Disposition: PACU Complications:: None immediately apparent
--- NOTE | 2023-08-30 10:16 | P.PNANES_ITS ---
[facility] Anesthesia Record Part I Anesthesia Record I Intake, IV Amount: 1,200 Hydration: Adequate Estimated blood loss (mL): 15 Urine output (mL): 0 Blood Products used (#): none Blood Pressure: 107/76 SaO2: 98 Pulse Rate: 101 Airway Patency: Patent Respiratory Rate: 24 Temperature: 97.8 F Patient is:: Drowsy and Stable
--- NOTE | 2023-08-30 10:44 | SUR.PHASEI ---
Confirmed with [facility] in [facility] that pt's meds 2 bed are ready. This RN let Keri know that pt will be in postop in about five min.
--- NOTE | 2023-08-31 08:38 | P.PNANES_ITS ---
[facility] Anesthesia Record Part II Anesthesia Record Part II Discharge Time: 11:38 Destination: [facility] PACU nurse assessment reviewed?: Yes Patient Condition:: Good Anesthesia Complications:: None Swallowing reflex intact?: Yes Airway Patency: Patent Cyanosis?: No Blood Pressure: 120/76 SaO2: 98 Respiratory Rate: 18 Pulse Rate: 89 Temperature: 97.1 F Mental Status: Alert & Oriented Pain level:: 0 Nausea and/or vomitting:: None Intake, IV Amount: 1,000 Hydration: Adequate
[2023-08-31 08:40] VITALS: BP 120/76; PULSE 89; RESP 18; TEMP 36.2; O2SAT 98
== END 2023-08-30 11:15 | disposition home or self-care (01) ==
PROVIDERS: PCP Nurse Practitioner Family; Visit Provider Surgery
PROC: 0FT44ZZ Resection of Gallbladder, Percutaneous Endoscopic Approach (ICD-10-PCS; CPT 47562; principal; 2023-08-30 08:45)
DX: K80.10 Calculus of gallbladder with chronic cholecystitis without obstruction (principal)
CPT/HCPCS: 47562; 81025; 96374; J2405

== ENCOUNTER 2023-10-31 11:05 | Emergency (ER) | payer BC, SELFPAY ==
[2023-10-31 11:23] VITALS: BP 144/84; PULSE 90; RESP 18; TEMP 36.7; O2SAT 96; BMI 39.0
[2023-10-31 11:25] VITALS: BP 100/67
--- NOTE | 2023-10-31 11:44 | CT_ITS ---
PROCEDURE INFORMATION: Exam: CT Head Without Contrast Exam date and time: 10/31/2023 12:29 PM Age: 28 years old Clinical indication: Pain; Headache; Additional info: L sided POLLOCK TECHNIQUE: Imaging protocol: Computed tomography of the head without contrast. Radiation optimization: All CT scans at this facility use at least one of these dose optimization techniques: automated exposure control; mA and/or kV adjustment per patient size (includes targeted exams where dose is matched to clinical indication); or iterative reconstruction. COMPARISON: No relevant prior exams. FINDINGS: Brain: Normal. No hemorrhage. Unremarkable white matter. No mass effect. No abnormal extra-axial fluid collections. Cerebral ventricles: No ventriculomegaly. Paranasal sinuses: Mild mucosal thickening in the right maxillary sinus. [id number] mucosal thickening in the left frontal sinus. Mastoid air cells: Welll aerated. Bones/joints: Unremarkable. No acute fracture. Soft tissues: Unremarkable. IMPRESSION: 1. No acute intracranial changes. 2. Paranasal sinus disease.
--- NOTE | 2023-10-31 11:46 | HMH.EDGENADL ---
Discharge Plan Disposition Patient Disposition: Home, Self-Care Chief Complaint: Headache Prescriptions Prescriptions: No Action medroxyprogesterone [Depo-Provera] 150 mg/mL suspension 150 mg IM [id number] Qty: 1 3RF Loratadine-D 5-120 mg tablet extended release 12 hr 1 tab PO DAILY fluticasone propionate 50 mcg/actuation spray,suspension 1 spray intranasal DAILY Qelbree 200 mg capsule,extended release 24hr 200 mg PO DAILY Qty: 30 1RF Lybalvi 10-10 mg tablet 1 tab PO QHS Qty: 30 2RF buspirone 10 mg tablet 10 mg PO BID Qty: 60 1RF phentermine 37.5 mg Tablet 37.5 mg PO DAILY Rx Instructions: must administer 30 minutes before or 1-2 hours after breakfast Referrals Follow up/Referrals: Mei Franco APRN [Primary Care Provider] - See instructions Activity Restrictions/Add. Instructions Additional Instructions/Restrictions: At this time it was felt you are safe to be discharged home. If new or worsening symptoms please do not hesitate to return the emergency department. Please follow-up with your family doctor as discussed. Clinical Impressions Clinical Impression: Headache, Symptoms of upper respiratory infection (URI) Discharge ED Provider: Polo East General Adult HPI General Chief complaint: Headache Stated complaint: h/a, vomiting Time Seen by Provider: 10/31/23 11:34 Mode of Arrival: Ambulatory Source of Information: Patient Limitations: No Limitations Description of Symptoms (Recalled from ER Triage Doc. by RN): Patient reports a left sided headache that started yesterday. States that she has attempted to take medication to relieve the headache but she keeps throwing it up. States she has had headaches like these in the past. History of Present Illness HPI narrative: Patient is a 28-year-old female currently on phentermine for weight loss who presents emergency department for evaluation of headache and upper respiratory symptoms. Patient has had upper respiratory congestion and left-sided headache over the last couple of days, no associated photophobia. There is associated nausea and nonbloody vomiting which caused her to present here for continued evaluation. Patient has noticed that she has had intermittent left-sided headaches previously, has never been evaluated for these. They have increased in frequency since starting her phentermine. Positive sick contacts at home. No other acute complaints at this time. Related Data Home Medications Medication Instructions Recorded Confirmed fluticasone propionate 50 1 spray intranasal DAILY 06/10/23 10/01/23 mcg/actuation nasal spray,suspension loratadine 5 mg-pseudoephedrine ER 1 tab PO DAILY 06/10/23 10/01/23 120 mg tablet,extended release,12hr (Loratadine-D) phentermine 37.5 mg tablet 37.5 mg PO DAILY Weight Loss 08/25/23 10/01/23 Previous Rx's Medication Instructions Recorded medroxyprogesterone 150 mg/mL 150 mg IM [id number] #1 mL 03/10/23 intramuscular suspension (Depo-Provera) olanzapine 10 mg-samidorphan 10 mg 1 tab PO QHS #30 tabs 09/13/23 tablet (Lybalvi) viloxazine 200 mg capsule,extended 200 mg PO DAILY #30 caps 09/13/23 release 24 hr (Qelbree) buspirone 10 mg tablet 10 mg PO BID #60 tabs 10/15/23 Allergies Allergy/AdvReac Type Severity Reaction Status Date / Time No Known Allergies Allergy Verified 09/23/23 09:37 [facility] Disclaimer: The information contained in this section may have been updated after the patient was seen, as this information can be updated by other users. 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 Travel in the last 8 weeks: None number of children: 2 ROS Obtained: Yes Systems reviewed as appropriate & no additional complaints except as documented Physical Exam General General appearance: alert and in no apparent distress Head Head exam: atraumatic and normocephalic Eye Eye exam: Present PERRL and EOMI ENT ENT exam: Present mucous membranes moist Neck Neck exam: Present normal inspection Chest Chest inspection: Present normal inspection and symmetric chest wall rise Respiratory Respiratory exam: Absent respiratory distress Cardiovascular Cardiovascular exam: Present regular rate and normal rhythm Abdominal Exam Abdominal exam: Present soft; Absent tenderness Extremities Exam Extremities exam: Present normal inspection Neurological Exam Neurological exam: Present alert and CN II-XII intact; Absent motor sensory deficit Psychiatric Psychiatric exam: Present normal affect Skin Skin exam: Present warm and dry Medical Decision Making David Inquiry Pt receiving controlled substance: No Vital Signs: 10/31/23 11:23 10/31/23 11:25 Temperature 98.0 F Temperature Source Oral Pulse Rate [Radial] 90 Respiratory Rate 18 Blood Pressure 100/67 L Blood Pressure [Right Arm] 144/84 H Blood Pressure Mean [Right Arm] 104 Blood Pressure Source [Right Arm] Automatic Cuff Blood Pressure Position [Right Arm] Sitting 02 Sat by Pulse Oximetry 96 Oxygen Delivery Method Room Air Lab Data Lab Results 10/31/23 11:40: WBC 8.0, RBC 4.69, Hgb 14.7, Hct 43.1, MCV 91.8, MCH 31.3 H, MCHC 34.1, RDW 12.8, Plt Count 270, MPV 7.8, Neut % (Auto) 62.3, Lymph % (Auto) 28.7, [place] % (Auto) 5.1, Eos % (Auto) 2.8, Baso % (Auto) 1.1, Neut # (Auto) 5.0, Lymph # (Auto) 2.3, [place] # (Auto) 0.4, Eos # (Auto) 0.2, Baso # (Auto) 0.1, Sodium 140, Potassium 4.1, Chloride 106, Carbon Dioxide 25, Anion Gap 13.1, BUN 10, Creatinine 0.70, Estimated Creat Clear 174, Estimated GFR 101, Est GFR ( Amer) 122, Glucose 109 H, Calcium 9.0, Total Bilirubin 0.6, AST 33, ALT 25, Alkaline Phosphatase 97, Total Protein 7.3, Albumin 4.3, Globulin 3.0, Albumin/Globulin Ratio 1.4, Serum HCG, Qual Negative 10/31/23 11:47: SARS-CoV-2 (PCR) Not detected, Influenza A Untype (PCR) Not detected, Influenza Type B (PCR) Not detected 10/31/23 11:40 10/31/23 11:40 Orders (Tests/Meds): ED MEDICATIONS Discontinued Medications Generic Name Dose Route Start Last Admin Trade Name Tony PRN Reason Stop Dose Admin Acetaminophen 1,000 mg 10/31/23 11:44 10/31/23 11:55 Acetaminophen 1,000mg/100ml Vial IV 10/31/23 11:45 1,000 mg ONCE ONE Administration Diphenhydramine HCl 50 mg 10/31/23 11:44 10/31/23 11:55 Diphenhydramine 50mg/Ml Vial IV 10/31/23 11:45 50 mg ONCE ONE Administration Lactated Ringer's 1,000 mls @ 999 mls/hr 10/31/23 11:44 10/31/23 11:55 Lactated Ringer's 1000 Ml Bag IV 10/31/23 12:44 999 mls/hr .Q1H1M ONE Administration Ketorolac Tromethamine 30 mg 10/31/23 11:44 10/31/23 11:55 Ketorolac 30mg/Ml Vial IV 10/31/23 11:45 30 mg ONCE ONE Administration Prochlorperazine Edisylate 5 mg 10/31/23 11:44 10/31/23 11:55 Prochlorperazine 10mg/2ml Vial IV 10/31/23 11:45 5 mg ONCE ONE Administration ORDERS Category Date Time Status CT head/brain wo con Stat Cat Scan 10/31/23 11:44 Completed CBC w/Auto Diff [Complete Blood Count Auto Diff] Stat Lab 10/31/23 11:40 Completed CMP [Comprehensive Metabolic Panel] Stat Lab 10/31/23 11:40 Completed HCG Qualitative, Serum Stat Lab 10/31/23 11:40 Completed Rapid PCR Covid and Flu A/B Stat Lab 10/31/23 11:47 Completed Medical Decision Narrative: In summary patient is a 28-year-old female past medical history described above presents emergency department for evaluation of headache and upper respiratory congestion. Patient is hemodynamically stable nontoxic-appearing upon arrival, afebrile with a nonfocal neurologic exam. Given the patient has severe left-sided headache, have happened previously and never had intracranial imaging noncontrasted CT scan was felt to be reasonable which will be ordered by me. Basic hematologic labs will be obtained. Viral swab obtained. Initial inventions include headache cocktail with crystalloid bolus, IV Tylenol, Compazine, diphenhydramine. Workup reviewed by me, hematologic labs are nonactionable, patient is non. Viral swab negative. CT head shows no acute intracranial changes, paranasal sinus disease which is consistent with patient's clinical picture. Upon repeat evaluation patient had large resolution of her symptoms. Given her nonfocal neurologic exam and resolution of her symptoms I have no concern for venous sinus thrombosis at this time. Given this patient is appropriate for outpatient management we will follow-up with her family doctor for continued evaluation. Patient was given return precautions. Critical Care Critical Care Time Critical Care Time: No
[2023-10-31 11:52] LABS: Coronavirus 19, PCR Not Detected (NotDetected); Influenza A, PCR Not Detected (NotDetected); Influenza B, PCR Not Detected (NotDetected)
[2023-10-31 11:52] LABS: Basophils # 0.1 K/mm3 (0-0.2); Basophils % 1.1 % (0.1-2.0); Chloride 106 mmol/L (98-107); Eosinophils # 0.2 K/mm3 (0.0-0.4); Eosinophils % 2.8 % (0.1-12.0); Hematocrit 43.1 % (37.0-47.0); Hemoglobin 14.7 g/dL (12.2-16.2); Lymphocytes # 2.3 K/mm3 (0.7-4.5); Lymphocytes % 28.7 % (10-50); Mean Corpuscular HGB Conc 34.1 g/dL (31.8-35.4); Mean Corpuscular Hemoglobin 31.3 pg (27.0-31.2); Mean Corpuscular Volume 91.8 fl (81-99); Mean Platelet Volume 7.8 fl (7.4-10.4); Monocytes # 0.4 K/mm3 (0.1-1.0); Monocytes % 5.1 % (1.7-9.3); Neutrophils % 62.3 % (37.0-80.0); Platelet Count 270 K/mm3 (142-424); Red Blood Count 4.69 M/mm3 (4.20-5.40); Red Cell Distribution Width 12.8 % (11.5-17.5)
[2023-10-31 11:53] LABS: Potassium 4.1 mmoL/L (3.5-5.1); Sodium 140 mmol/L (136-145)
[2023-10-31 11:55] LABS: Alanine Aminotransferase 25 U/L (12-78); Alkaline Phosphatase 97 U/L (38-126); Anion Gap 13.1 mEq/L (5-15); Aspartate Amino Transferase 33 U/L (14-36); Bilirubin,Total 0.6 mg/dl (0.2-1.3); Blood Urea Nitrogen 10 mg/dl (7-17); Carbon Dioxide 25 mmol/L (22.0-30.0); Creatinine Clearance Estimated 174 mL/min (50-200); Estimated Glomerular Filt Rate 101 ml/min (>60); GFR (African American) 122 ML/MIN (>60)
[2023-10-31] MEDS: LACTATED RINGERS 1000ML 1,000 ML 999 ML IV (11:55)
[2023-10-31] MEDS: ACETAMINOPHEN 1,000MG/100ML VIAL 1000 MG IV (11:55)
[2023-10-31] MEDS: KETOROLAC 30MG/ML VIAL 30 MG IV (11:55)
[2023-10-31] MEDS: diphenhydrAMINE 50MG/ML VIAL 50 MG IV (11:55)
[2023-10-31] MEDS: PROCHLORPERAZINE 10MG/2ML VIAL 5 MG IV (11:55)
[2023-10-31 11:56] LABS: Albumin Level 4.3 g/dl (3.5-5.0); Albumin/Globulin Ratio 1.4 (1.1-1.8); Glucose 109 mg/dl (74-100); Total Protein,Serum 7.3 g/dl (6.3-8.2)
[2023-10-31 12:00] LABS: HCG Qualitative, Serum Negative (Negative)
[2023-10-31 13:51] VITALS: BP 106/67; PULSE 62; RESP 16; TEMP 36.7; O2SAT 100
== END 2023-10-31 13:52 | disposition home or self-care (01) ==
LOC: UTC 11:10 → ER 11:13
PROVIDERS: Emergency Provider Emergency Medicine; PCP Nurse Practitioner Family
DX: R51.9 Headache, unspecified (principal); R11.0 Nausea; R09.81 Nasal congestion; J45.909 Unspecified asthma, uncomplicated
CPT/HCPCS: 70450; 80053; 84703; 85025; 87636; 96361; 96374; 96375; 99285; J0131

== ENCOUNTER 2024-06-23 08:19 | Emergency (ER) | payer BC, SELFPAY ==
[2024-06-23 08:25] VITALS: BP 131/72; PULSE 91; RESP 20; TEMP 37.1; O2SAT 98; BMI 42.8
[2024-06-23 08:41] LABS: UTC Strep Screen (Rapid) Negative (Negative)
--- NOTE | 2024-06-23 08:46 | EXP.UTC ---
Discharge Plan Disposition Patient Disposition: Home, Self-Care Condition: Good Prescriptions Prescriptions: New cephalexin 500 mg capsule 500 mg PO QID 7 Days Qty: 28 0RF mupirocin 2 % ointment 1 applic topical TID 10 Days Qty: 22 0RF Rx Instructions: apply to area area directed No Action hydroxyzine pamoate 50 mg capsule 50 mg PO DAILY fluticasone propionate 50 mcg/actuation spray,suspension 2 spray INTRANASAL DAILY medroxyprogesterone 150 mg/mL suspension 150 mg IM ONCE Patient Comments: INJECT 1ML INTRAMUSCULARLY ONCE EVERY 3 MONTHS DIRECTED Qelbree 200 mg capsule,extended release 24hr 200 mg PO DAILY Lybalvi 15-10 mg tablet 1 tab PO DAILY Referrals Follow up/Referrals: Mei Franco APRN [Primary Care Provider] - See instructions Activity Restrictions/Add. Instructions Additional Instructions/Restrictions: *Monitor Temp, Over the counter Motrin or Tylenol as directed/as needed Tylenol every 4 hours and Motrin every 6 hours (as long as your family doctor has told you that you can take it) for fever or pain. and straight to ER if unable to lower temp less than 101.0 after medication given *Warm salt water gargles may help to soothe the throat *Throat Lozenges? *Warm fluids like tea with honey may help to soothe the throat? *Sleep elevated *Humidifier/Vaporizer *Your throat swab was sent for culture. Those results are typically sent to your primary care. Be sure to follow up in 2-3 days with your family doctor/primary care physician if no improvement so they can review those result and treat if necessary. If you don?t have a primary care doctor, I recommend you get one but in the mean time, you will have to return to a walk in clinic Take medication as prescribed and use topical antibiotic as prescribed Follow up with your Family Doctor if needed Follow up IMMEDIATELY for new or worsening symptoms or no Noticeable improvement over the next 48-72 hours. 911 for difficulty breathing or swallowing Clinical Impressions Clinical Impression: Sore throat (viral), Boil Instructions Patient Instructions: Sore Throat, Mupirocin Print Language Print Language: Swazi Discharge ED Provider: Shari Zimmerman [facility] HPI General Stated complaint: sore throat, headache, blister on vaginal area Mode of Arrival: Ambulatory Source of Information: Patient Limitations: No Limitations Time Seen by Provider: 06/23/24 08:46 Description of Symptoms (Recalled from Triage Doc. by RN): PATIENT C/O SORE THROAT AND BLISTER TO RIGHT INNER THIGH SINCE YESTERDAY HEENT Symptoms (Recalled from RN notes): Yes Resp Symptoms (Recalled from RN notes): No Skin Symptoms (Recalled from RN notes): Yes MS Symptoms (Recalled from RN notes): No Functional Status (Recalled from RN notes): WNL History of Present Illness Provider Complaint: Patient states that she has been having sore throat for several days and has sore area on her right inner thigh thinks she may have a blister or bump there and wanted to get it looked at Related Data Home Medications ?Medication ?Instructions ?Recorded ?Confirmed fluticasone propionate 50 2 spray intranasal DAILY 06/23/24 06/23/24 mcg/actuation nasal spray,suspension hydroxyzine pamoate 50 mg capsule 50 mg PO DAILY 06/23/24 06/23/24 medroxyprogesterone 150 mg/mL 150 mg IM ONCE 06/23/24 06/23/24 intramuscular suspension olanzapine 15 mg-samidorphan 10 mg 1 tab PO DAILY 06/23/24 06/23/24 tablet (Lybalvi) viloxazine 200 mg capsule,extended 200 mg PO DAILY 06/23/24 06/23/24 release 24 hr (Qelbree) Previous Rx's ?Medication ?Instructions ?Recorded cephalexin 500 mg capsule 500 mg PO QID 7 days #28 caps 06/23/24 mupirocin 2 % topical ointment 1 applic topical TID 10 days #22 06/23/24 grams Allergies Allergy/AdvReac Type Severity Reaction Status Date / Time No Known Allergies Allergy Verifie
[2024-06-23 09:00] VITALS: BP 131/72; PULSE 91; RESP 20; TEMP 37.1; O2SAT 98
== END 2024-06-23 09:04 | disposition home or self-care (01) ==
PROVIDERS: Emergency Provider Nurse Practitioner; PCP Nurse Practitioner Family
DX: L02.92 Furuncle, unspecified (principal); J02.8 Acute pharyngitis due to other specified organisms; B34.9 Viral infection, unspecified
CPT/HCPCS: 87880; 99212; 99214; G0463

== ENCOUNTER 2024-09-15 16:48 | Emergency (ER) | payer BC, SELFPAY ==
[2024-09-15 16:49] VITALS: BP 146/83; PULSE 76; RESP 18; TEMP 36.9; O2SAT 96; BMI 44.5
--- NOTE | 2024-09-15 17:18 | ED_ITS ---
Discharge Plan Disposition Patient Disposition: Home, Self-Care Prescriptions Prescriptions: New albuterol sulfate 90 mcg/actuation HFA aerosol inhaler 2 inh inhalation Q4H PRN (Reason: shortness of breath or wheezing) Qty: 8.5 0RF No Action hydroxyzine pamoate 50 mg capsule 50 mg PO DAILY Qty: 90 0RF Lybalvi 15-10 mg tablet 1 tab PO DAILY Qty: 90 0RF Qelbree 200 mg capsule,extended release 24hr 400 mg PO DAILY Qty: 60 2RF fluticasone propionate 50 mcg/actuation spray,suspension 2 spray INTRANASAL DAILY Referrals Follow up/Referrals: Mei Franco APRN [Primary Care Provider] - See instructions Activity Restrictions/Add. Instructions Additional Instructions/Restrictions: At this time it was felt you are safe to be discharged home. If new or worsening symptoms please do not hesitate to return the emergency department. If the results of your swabs are positive I will call you. Otherwise your symptoms will likely last up to 2 weeks and sometimes your cough can last longer. I have called you in an inhaler if you begin to start wheezing. Clinical Impressions Clinical Impression: Acute viral syndrome, Acute sore throat Print Language Print Language: Norwegian Discharge ED Provider: [facility] HPI General Chief complaint: Upper Respiratory Infection Stated complaint: cough,runny nose Time Seen by Provider: 09/15/24 16:58 Mode of Arrival: Ambulatory Limitations: No Limitations Description of Symptoms (Recalled from ER Triage Doc. by RN): PT REPORTS COUGH AND RUNNY NOSE, STARTED ON WEDNESDAY History of Present Illness HPI narrative: Patient is a 29-year-old female with past medical history of asthma not on controller therapy emergency department for evaluation of cough runny nose and sore throat. Onset was acute, since yesterday. Positive sick contacts at home. Adequate p.o. intake. She did have some shortness of breath overnight which was better with sitting up and resolved prior to my evaluation today. No chest pain reported, no abdominal pain reported. She has a bitemporal headache, no extremity weakness reported, no other acute complaints at this time. Related Data Home Medications ?Medication ?Instructions ?Recorded ?Confirmed fluticasone propionate 50 2 spray intranasal DAILY 06/23/24 09/14/24 mcg/actuation nasal spray,suspension Previous Rx's ?Medication ?Instructions ?Recorded hydroxyzine pamoate 50 mg capsule 50 mg PO DAILY #90 caps 08/14/24 olanzapine 15 mg-samidorphan 10 mg 1 tab PO DAILY #90 tabs 08/14/24 tablet (Lybalvi) viloxazine 200 mg capsule,extended 400 mg (2 x 200 mg) PO DAILY #60 08/14/24 release 24 hr (Qelbree) caps albuterol sulfate 90 mcg/actuation 2 inh inhalation Q4H PRN shortness 09/15/24 aerosol inhaler of breath or wheezing #8.5 grams Allergies Allergy/AdvReac Type Severity Reaction Status Date / Time No Known Allergies Allergy Verified 09/14/24 14:12 [facility] Disclaimer: The information contained in this section may have been updated after the patient was seen, as this information can be updated by other users. 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 number of children: 2 Other Medical History Have you received the Flu Vaccine for this season: No Have you received the Pneumonia Vaccine: No ROS Obtained: Yes Systems reviewed as appropriate & no additional complaints except as documented Physical Exam General General appearance: alert and in no apparent distress Head Head exam: atraumatic and normocephalic Eye Eye exam: Present PERRL ENT ENT exam: Present mucous membranes moist Neck Neck exam: Present normal inspection Chest Chest inspection: Present normal inspection and symmetric chest wall rise Respiratory Respiratory exam: Present normal lung sounds bilaterally; Absent respiratory distress, wheezes, stridor or accessory muscle use Cardiovascular Cardiovascular exam: Present regular rate and normal rhythm Abdominal Exam Abdominal exam: Present soft Extremities Exam Extremities exam: Present normal inspection Neurological Exam Neurological exam: Present alert, CN II-XII intact and normal gait; Absent motor sensory deficit Psychiatric Psychiatric exam: Present normal affect Skin Skin exam: Present warm and dry Medical Decision Making Medical Records Screening: Per USPSTF and CDC recommendations, given the prevalence of disease in our region, it is our hospital?s policy to screen for HIV and viral Hepatitis for all patients aged 18 and over and those with ongoing risk factors. David Inquiry Pt receiving controlled substance: No Vital Signs: 09/15/24 16:49 Temperature 98.5 F Temperature Source Oral Pulse Rate [Radial] 76 Respiratory Rate 18 Blood Pressure [Right Arm] 146/83 H Blood Pressure Mean [Right Arm] 104 Blood Pressure Source [Right Arm] Automatic Cuff Blood Pressure Position [Right Arm] Sitting 02 Sat by Pulse Oximetry 96 Oxygen Delivery Method Room Air Orders (Tests/Meds): ED MEDICATIONS Discontinued Medications Generic Name Dose Route Start Last Admin Trade Name Freq PRN Reason Stop Dose Admin Acetaminophen 1,000 mg 09/15/24 17:08 Acetaminophen 500mg Tab PO 09/15/24 17:09 ONCE ONE Ibuprofen 600 mg 09/15/24 17:08 Ibuprofen 600 Mg Tablet PO 09/15/24 17:09 ONCE ONE ORDERS Category Date Time Status Rapid PCR Covid and Flu A/B Stat Lab 09/15/24 17:07 Ordered Strep Scrn Group A (Rapid) Stat Lab 09/15/24 17:07 Ordered Medical Decision Narrative: In summary patient is 29-year-old female past medical history described above presents emergency department for evaluation of congestion, headaches, sore throat, shortness of breath. Patient is hemodynamically stable nontoxic- appearing upon arrival, afebrile. I suspect patient has a nonspecific viral syndrome, differential includes strep pharyngitis, among others. She is clear to auscultation all lung chan without tachypnea, no fever, no wheezing. She has a nonfocal neurologic exam. Given this workup with hematologic labs and imaging was considered but will be deferred. Limited workup will be conducted with viral respiratory swab. Interventions include Tylenol and ibuprofen and patient is appropriate for discharge at this time with swab pending. Patient will be prescribed a metered-dose inhaler at home for if she begins to wheeze that she does not have one. Critical Care Critical Care Time Critical Care Time: No
[2024-09-15 17:19] LABS: Coronavirus 19, PCR Not Detected (NotDetected); Influenza A, PCR Not Detected (NotDetected); Influenza B, PCR Not Detected (NotDetected)
[2024-09-15] MEDS: IBUPROFEN 600 MG TABLET PO (17:21)
[2024-09-15] MEDS: ACETAMINOPHEN 500MG TAB 1000 MG PO (17:21)
[2024-09-15 17:23] VITALS: BP 146/83; PULSE 76; RESP 18; TEMP 36.9; O2SAT 96
== END 2024-09-15 17:24 | disposition home or self-care (01) ==
PROVIDERS: Emergency Provider Emergency Medicine; PCP Nurse Practitioner Family
DX: B34.9 Viral infection, unspecified (principal); J02.9 Acute pharyngitis, unspecified; R05.9 Cough, unspecified; R06.02 Shortness of breath; R09.81 Nasal congestion; R51.9 Headache, unspecified; Z72.0 Tobacco use
CPT/HCPCS: 87636; 99283

== ENCOUNTER 2025-08-19 08:30 | Outpatient (CLI) | payer OTHER, SELFPAY ==
[2025-08-19 20:22] LABS: Coronavirus 19, PCR Not Detected (NotDetected); Influenza B, PCR Not Detected (NotDetected)
[2025-08-20 05:25] LABS: Influenza A, PCR Detected (NotDetected)
== END 2025-08-19 23:59 ==
LOC: LAB.DROPOF 08-21 08:30
PROVIDERS: PCP Nurse Practitioner Family; Visit Provider Nurse Practitioner
DX: J06.9 Acute upper respiratory infection, unspecified (principal)
CPT/HCPCS: 87631